=== PATIENT | male | born 1975 | race African-American/Black ===

== ENCOUNTER 2017-12-25 11:28 | Emergency (ER) | payer MEDICAID ==
[~2017-12-25] VITALS: Ht 193 cm; Wt 84.0 kg
[2017-12-25 11:43] VITALS: BP 138/75
== END 2017-12-25 12:54 | disposition home or self-care (01) ==
LOC: ER 11:28
DX: F15.10 Other stimulant abuse, uncomplicated (principal); Z02.89 Encounter for other administrative examinations; F17.200 Nicotine dependence, unspecified, uncomplicated; Z79.82 Long term (current) use of aspirin
CPT/HCPCS: 99283

== ENCOUNTER 2018-03-14 13:21 | Emergency (ER) | payer MEDICAID ==
[~2018-03-14] VITALS: Ht 193.7 cm; Wt 86.8 kg
[2018-03-14 14:17] VITALS: BP 115/43
== END 2018-03-14 15:24 | disposition home or self-care (01) ==
LOC: ER 13:22
DX: F15.10 Other stimulant abuse, uncomplicated (principal); Z60.2 Problems related to living alone; Z88.6 Allergy status to analgesic agent
CPT/HCPCS: 99281

== ENCOUNTER 2018-05-24 10:09 | Emergency (ER) | payer MEDICAID ==
[~2018-05-24] VITALS: Ht 193 cm; Wt 89.0 kg
[2018-05-24] MEDS ORDERED: [UNRECOGNIZED DRUG - CODE] PO (10:53)
[2018-05-24 11:28] VITALS: BP 115/52
== END 2018-05-24 11:30 | disposition home or self-care (01) ==
LOC: ER 10:09
DX: J22 Unspecified acute lower respiratory infection (principal); F15.90 Other stimulant use, unspecified, uncomplicated; Z88.6 Allergy status to analgesic agent; Z79.899 Other long term (current) drug therapy; Z60.2 Problems related to living alone
CPT/HCPCS: 99283

== ENCOUNTER 2018-05-29 16:52 | Emergency (ER) | payer MEDICAID ==
[~2018-05-29] VITALS: Ht 193.7 cm; Wt 89.5 kg
[~2018-05-29 16:52] MED LIST: [UNRECOGNIZED DRUG - CODE] PO
[2018-05-29 16:56] VITALS: BP 127/60
== END 2018-05-29 18:42 | disposition home or self-care (01) ==
LOC: ER 16:52
DX: B34.9 Viral infection, unspecified (principal); F17.210 Nicotine dependence, cigarettes, uncomplicated; F15.90 Other stimulant use, unspecified, uncomplicated; Z88.6 Allergy status to analgesic agent
CPT/HCPCS: 99281

== ENCOUNTER → 2018-11-14 | Emergency (ER) | payer MEDICAID ==
[~2018-11-14] VITALS: Ht 195.6 cm; Wt 88.6 kg
[~2018-11-14] MED LIST changes: +EMOL78CR TOP; +KEN0.1O TP
[2018-11-14 13:57] VITALS: BP 131/78
== END | disposition home or self-care (01) ==
LOC: ER 13:24
DX: L30.9 Dermatitis, unspecified (principal); F15.90 Other stimulant use, unspecified, uncomplicated; Z88.6 Allergy status to analgesic agent; Z79.899 Other long term (current) drug therapy
CPT/HCPCS: 99283

== ENCOUNTER 2019-06-30 10:59 | Emergency (ER) | payer MEDICAID, OTHER ==
[~2019-06-30] VITALS: Ht 190.5 cm; Wt 93.2 kg
[~2019-06-30 10:59] MED LIST changes: -KEN0.1O TP
[2019-06-30 11:07] VITALS: BP 125/79
== END 2019-06-30 13:13 | disposition home or self-care (01) ==
LOC: ER 11:00
DX: S90.31XA Contusion of right foot, initial encounter (principal); F15.90 Other stimulant use, unspecified, uncomplicated; F17.200 Nicotine dependence, unspecified, uncomplicated; Z88.6 Allergy status to analgesic agent; Z79.899 Other long term (current) drug therapy; W50.0XXA Accidental hit or strike by another person, initial encounter; Y93.44 Activity, trampolining; Y92.89 Other specified places as the place of occurrence of the external cause; Y99.9 Unspecified external cause status
CPT/HCPCS: 29515; 99283

== ENCOUNTER 2019-08-30 11:15 | Emergency (ER) | payer MEDICAID, OTHER ==
[~2019-08-30] VITALS: Ht 193 cm; Wt 110.0 kg
[2019-08-30 11:40] VITALS: BP 130/70
[2019-08-30] MEDS ORDERED: ROBCFL PO (13:33)
[2019-08-30] MEDS ORDERED: BENZ-16 PO (13:33)
[2019-08-30] MEDS ORDERED: ALBU18HF2 INH (13:33)
== END 2019-08-30 13:49 | disposition home or self-care (01) ==
LOC: ER 11:16
DX: R05 Cough (principal); J00 Acute nasopharyngitis [common cold]; R09.89 Other specified symptoms and signs involving the circulatory and respiratory systems; F15.90 Other stimulant use, unspecified, uncomplicated; Z88.8 Allergy status to other drugs, medicaments and biological substances; Z79.899 Other long term (current) drug therapy; Z60.2 Problems related to living alone
CPT/HCPCS: 99283

== ENCOUNTER 2019-10-11 08:45 | Emergency (ER) | payer MEDICAID, OTHER ==
[~2019-10-11] VITALS: Ht 190.5 cm; Wt 88.0 kg
[~2019-10-11 08:45] MED LIST changes: +ALBU18HF2 INH
[2019-10-11 08:47] VITALS: BP 149/62
[2019-10-11] MEDS ORDERED: AMOX-117 PO (09:06)
[2019-10-11] MEDS ORDERED: HYDR-4383 PO (09:06)
== END 2019-10-11 09:28 | disposition home or self-care (01) ==
LOC: ER 08:45
DX: K04.7 Periapical abscess without sinus (principal); F15.90 Other stimulant use, unspecified, uncomplicated; Z88.6 Allergy status to analgesic agent
CPT/HCPCS: 99283

== ENCOUNTER 2020-02-12 12:28 | Emergency (ER) | payer MEDICAID, OTHER ==
[~2020-02-12] VITALS: Ht 190.5 cm; Wt 90.9 kg
[~2020-02-12 12:28] MED LIST changes: +HYDR-4383 PO
[2020-02-12 12:54] VITALS: BP 145/86
[2020-02-12] MEDS ORDERED: TETanus/Pertussis (Acell)/Diphther VAC/PF (Tdap-Adult) 0.5ml syringe IMVAC ONE (13:30)
[2020-02-12] MEDS ORDERED: AMOX-117 PO (13:54)
== END 2020-02-12 14:07 | disposition home or self-care (01) ==
LOC: ER 12:29
DX: S41.052A Open bite of left shoulder, initial encounter (principal); F15.90 Other stimulant use, unspecified, uncomplicated; Z60.2 Problems related to living alone; Z88.8 Allergy status to other drugs, medicaments and biological substances; Z79.2 Long term (current) use of antibiotics; Z79.899 Other long term (current) drug therapy; W50.3XXA Accidental bite by another person, initial encounter; Y93.89 Activity, other specified; Y92.89 Other specified places as the place of occurrence of the external cause; Y99.8 Other external cause status
CPT/HCPCS: 90471; 90715; 99283

== ENCOUNTER 2021-10-24 10:49 | Emergency (ER) | payer MEDICAID, OTHER ==
[~2021-10-24] VITALS: Ht 191.1 cm; Wt 88.4 kg
[2021-10-24 10:57] VITALS: BP 115/68
[2021-10-24] MEDS ORDERED: KEP500T PO (11:05)
== END 2021-10-24 11:09 | disposition home or self-care (01) ==
LOC: ER 10:49
DX: Z76.0 Encounter for issue of repeat prescription (principal); M54.41 Lumbago with sciatica, right side; F15.90 Other stimulant use, unspecified, uncomplicated; Z60.2 Problems related to living alone; Z88.8 Allergy status to other drugs, medicaments and biological substances; Z79.899 Other long term (current) drug therapy
CPT/HCPCS: 99282; 99283

== ENCOUNTER 2025-01-15 06:12 | Inpatient (IN) | payer MEDICAID ==
[2025-01-15] VITALS (26 sets, daily range): BP systolic 94–153; BP diastolic 48–127; PULSE 69–147; RESP 16–40; O2SAT 95–100
[~2025-01-15] VITALS: Ht 193 cm; Wt 87.4 kg
[~2025-01-15 06:12] MED LIST changes: +KEP500T PO
[2025-01-15] MEDS: ipratropium/albuterol 3ml nebule NEB ONE (06:30)
[2025-01-15] MEDS: furosemide 10 MG/1 ML 10ml inj IV ONE (06:30)
[2025-01-15 06:39] LABS: ABG BASE EXCESS -4.1 mmol/L (-2.0-3.0); ABG HCO3 24.4 mmol/L (21.0-28.0); ABG OXYGEN SATURATION 98.9 % (94.0-98.0); ABG PCO2 (T) 60.4 mmHg (35.0-48.0); ABG PH (T) 7.225 (7.350-7.450); ABG PO2 (T) 161.5 mmHg (83.0-108.0); ALLEN'S TEST POSITIVE; FCOHb 1.1 % (0.5-1.5); FHHb 1.1 % (0.0-5.0); FMetHb 0.1 % (0.0-1.5); FO2Hb 97.7 % (94.0-98.0); MODE MASK - BIPAP; TIDAL VOLUME 750 mL; TOTAL HEMOGLOBIN 13.4 G/dl (13.5-17.5)
[2025-01-15 06:40] LABS: BASOPHILS # (AUTO) 0.1 X10'3 (0-0.2); BASOPHILS % (AUTO) 0.9 % (0-1); EOSINOPHILS # (AUTO) 0.2 X10'3 (0-0.9); EOSINOPHILS % (AUTO) 2.2 % (0-6); HEMATOCRIT 39.8 % (42.0-52.0); HEMOGLOBIN 12.7 g/dl (14.0-17.9); LYMPHOCYTES # (AUTO) 5.1 X10'3 (1.1-4.8); LYMPHOCYTES % (AUTO) 46.7 % (21-51); MEAN CORPUSCULAR HEMOGLOBIN 27.1 PG (27.0-31.0); MEAN CORPUSCULAR HGB CONC 31.8 g/dL (33.0-36.5); MEAN CORPUSCULAR VOLUME 85.1 FL (78-98); MEAN PLATELET VOLUME 7.6 FL (7.4-10.4); MONOCYTES # (AUTO) 0.6 X10'3 (0-0.9); MONOCYTES % (AUTO) 5.6 % (2-12); NEUTROPHILS # (AUTO) 4.9 X10'3 (1.8-7.7); NEUTROPHILS % (AUTO) 44.6 % (42-75); PLATELET COUNT 219 X10'3 (140-440); RED BLOOD COUNT 4.68 X10'6 (4.70-6.10); RED CELL DISTRIBUTION WIDTH 15.6 % (11.5-14.5)
--- NOTE | 2025-01-15 06:40 | Physician Documentation ---
History of Present Illness ~ Chief Complaint: Shortness of Breath Stated Complaint: RESPIRATORY DISTRESS Time Seen by MD: 06:22 OK to notify your PCP?: Yes Primary Medical Doctor: none Source: patient, RN/, RN notes reviewed, old records Exam Limitations: clinical condition HPI This patient has a history of a TAVR as well as open heart surgery. He has a history of heart failure and according to the medical record asthma as well. Patient is unable to speak nods to questions but does not answer questions appropriately he is in severe respiratory distress. Patient apparently was doing fentanyl received Narcan, EMS arrived satting at 80% non-rebreather was provided and immediately came to the ER for evaluation where he is barely able to provide a history. Review of systems unable to obtained. Majority information is obtained by EMS as well as medical record. Patient is diaphoretic and having difficulty maintaining body posture. Patient states he has not taken his medications in a while Medication Reconciliation Allergies: Coded Allergies: aspirin (Verified Allergy, Unknown, 01/15/25) Miscellaneous Medications Home Med List (No Home Medications), (Reported) Discontinued Medications Albuterol Sulfate (Ventolin Hfa), 2 PUFFS INH Q4HPRN Discontinued Reason: Other Dextromethorphan Hb/Doxylamine (Daytime-Nighttime Cough Liquid), 5 ML PO TID Discontinued Reason: Other Emollient Combination No.73 (Eucerin Intensive Repair), 1 APPLIC TOP BID Discontinued Reason: Other Hydrocodone/Acetaminophen ([place] 5-325 Tablet), 1 TAB PO TID PRN Discontinued Reason: Other Levetiracetam (Keppra), 1 TAB PO Q12H Discontinued Reason: Other Past Medical History Past Medical History: *CARDIOVASCULAR* Past Surgical History: noncontributory Alcohol Use: None Drug Use: methamphetamine, heroin Lives with: Alone Lives In: Home Review of Systems ROS Unable to obtain ROS Physical Exam Vital Signs: RN Vital Signs have been reviewed: Yes, Temperature: 98.6, Source: Temporal, Heart Rate: 116, Respiratory Rate: 39, BP: 149/123, Pulse Oximetry: 100, Weight: 97.730 Oxygen Flow Rate: 15.0 Physical Exam General: The patient is well developed, well nourished, toxic appearing and is in severe acute distress. Diaphoretic having difficulty maintaining posture Skin: [place], warm and dry with no rashes. HEENT: Head was normocephalic and atraumatic. Eyes - pupils equal, round, reactive to light and accommodation. Extraocular movements were intact. Conjunctivae were nonicteric. The mouth and oropharynx were clear with moist mucous membranes. There were no pharyngeal exudates or erythema. Neck: Supple and nontender. There was no jugular venous distention, lymphadenopathy, thyromegaly or masses. Chest: Diffuse rhonchi throughout all lung millan. Accessory muscle use diaphragmatic breathing rapid breathing Heart: Rate rapid regular and rhythmic. S1, S2. No murmurs. Palpation of the chest wall was normal. No rubs or thrills. Abdomen: Soft, nontender and nondistended. Positive bowel sounds. No guarding or rebound. No hepatosplenomegaly or palpable masses. Extremities: No cyanosis, clubbing or edema. The patient moves all extremities. Pulses were equal and symmetric. Neurologic: Motor sensory grossly intact Psychologic: The patient was oriented to person, place and time. The patient demonstrated appropriate judgement and insight. Progress Progress Note 0810: Dr. sierra was spoken to reguarding the patient and he kindly agreed to admit the patient with admission orders being entered at this time . 0840: An abnormal echocardiography confirmed pericarditis so antibiotics were written at this time. Results/Orders Results/Orders Orders - NELSON VALERO MD Electrocardiogram (01/15/25 06:23) Chest,Single View (01/15/25 06:30) Monitor (01/15/25 06:23) Saline Lock (01/15/25 06:23) Abg (Arterial Blood Gas) (01/15/25 06:23) Svn Treatment (01/15/25 06:26) Carvedilol Tablet (Coreg Tablet) (01/15/25 08:00) Bipap/Cpap (01/15/25 06:43) Heparin 25,000 Unit/250ml Bag (Heparin 2 (01/15/25 07:25) Electrocardiogram (01/15/25 07:31) Heparin 10,000 Unit/Ml 1ml (Heparin 10,0 (01/15/25 07:40) Md To Page (01/15/25 07:40) Echocardiogram (01/15/25 07:41) Electrocardiogram (01/16/25 08:00) Completed Orders - NELSON VALERO MD Furosemide Inj (Lasix Inj) (01/15/25 06:25) Electrocardiogram (01/15/25 06:23) Cbc/Diff (01/15/25 06:23) Chest,Single View (01/15/25 06:30) Hs Troponin I W Calculations (01/15/25 06:23) PBNP (01/15/25 06:23) BMP (01/15/25 06:23) PTT (01/15/25 06:23) Pt Inr (01/15/25 06:23) Methylprednisolone Sod Succ (Solumedrol (01/15/25 06:30) Ipratropium/Albuterol Nebule (Ipratrop/A (01/15/25 06:30) Metoprolol Tartrate Inj (Lopressor Iv) (01/15/25 06:30) Heparin 10,000 Unit/Ml 1ml (Heparin 10,0 (01/15/25 07:25) Electrocardiogram (01/15/25 07:31) Liver Panel (01/15/25 06:28) Echocardiogram (01/15/25 07:41) Message To Nursing (01/15/25 08:00) Fibrinogen (01/15/25 07:13) C-Reactive Protein (01/15/25 06:28) Vital Signs 01/15/25 01/15/25 01/15/25 01/15/25 06:15 06:33 06:33 06:38 Temp 98.6 98.6 Pulse 152 81 116 129 Resp 35 35 39 40 40 B/P (MAP) 141/65 149/123 (132) Pulse Ox 92 100 100 O2 Delivery BiPAP+ O2 Flow Rate 15.0 15.0 FiO2 60 50 01/15/25 01/15/25 01/15/25 01/15/25 06:39 06:43 06:46 07:13 Pulse 147 115 101 Resp 45 38 B/P (MAP) O2 Delivery Bi-pap FiO2 50 01/15/25 07:17 Temp 98.6 Pulse 130 Resp 40 B/P (MAP) 115/52 (73) Pulse Ox 97 O2 Flow Rate 15.0 FiO2 60 Laboratory Tests Test 01/15/25 06:28 01/15/25 06:35 01/15/25 06:53 01/15/25 07:13 White Blood Count 11.0 Red Blood Count 4.68 L Hemoglobin 12.7 L Hematocrit 39.8 L Mean Corpuscular Volume 85.1 Mean Corpuscular Hemoglobin 27.1 Mean Corpuscular Hemoglobin Concent 31.8 L Red Cell Distribution Width 15.6 H Platelet Count 219 Mean Platelet Volume 7.6 Neutrophils (%) (Auto) 44.6 Lymphocytes (%) (Auto) 46.7 Monocytes (%) (Auto) 5.6 Eosinophils (%) (Auto) 2.2 Basophils (%) (Auto) 0.9 Neutrophils # (Auto) 4.9 Lymphocytes # (Auto) 5.1 H Monocytes # (Auto) 0.6 Eosinophils # (Auto) 0.2 Basophils # (Auto) 0.1 CBC Comment Erythrocyte Sedimentation Rate 7 Sodium Level 141 Potassium Level 5.6 H Chloride Level 106 Carbon Dioxide Level 27.0 Anion Gap 8 Blood Urea Nitrogen 21 H Creatinine 1.51 H Estimated GFR/1.73 m2 50 BUN/Creatinine Ratio 13.9 Glucose Level 164 H Lactic Acid Level 6.4 *H Calcium Level 8.3 L Total Bilirubin 0.5 Direct Bilirubin Aspartate Amino Transf (AST/SGOT) 79 H Alanine Aminotransferase (ALT/SGPT) 56 Alkaline Phosphatase 151 H Troponin I High Sensitivity 1432 *H C-Reactive Protein 1.08 H Pro-B-Type Natriuretic Peptide 5574 H Total Protein 7.3 Albumin 3.0 L Globulin 4.3 Albumin/Globulin Ratio 0.7 L Procalcitonin < 0.05 Chemistry Comments Blood Gas Specimen Type Arterial Blood Gas Puncture Site Lr O2 Saturation 98.9 H Arterial Blood pH (Temp corrected) 7.225 *L Arterial Blood pCO2 (Temp correct) 60.4 *H Arterial Blood pO2 (Temp corrected) 161.5 H Arterial Blood PO2/FiO2 Ratio 2.31 Arterial Blood HCO3 24.4 Arterial Blood Base Excess -4.1 L Arterial Blood Oxyhemoglobin 97.7 Arterial Blood Carboxyhemoglobin 1.1 Arterial Blood Methemoglobin 0.1 Arterial Blood Deoxyhemoglobin 1.1 Vj Test Positive Blood Gas Hemoglobin 13.4 L Blood Gas Temperature 37.0 Blood Gas Modality Mask - bipap FiO2 70.0 Blood Gas Tidal Volume 750 Blood Gas Critical Value Called To Dr valero Urine Specimen Description Urinal Urine Color Straw Urine Clarity Clear Urine pH 6.0 Urine Specific [place] 1.015 Urine Protein 100 H Urine Glucose (UA) Negative Urine Ketones Negative Urine Occult Blood Trace-intact Urine Nitrite Negative Urine Bilirubin Negative Urine Urobilinogen 0.2 Urine Leukocyte Esterase Negative Urine RBC 3-10 Urine WBC None seen Urine Squamous Epithelial Cells Few Urine Bacteria None seen Urine Mucus None seen Volume Urine Centrifuged 10 ml Urine Comment Urine Opiates Screen Negative Urine Methadone Screen Negative Urine Fentanyl Screen Positive H Urine Barbiturates Screen Negative Urine Phencyclidine Screen Negative Urine Amphetamines Screen Positive Urine Benzodiazepines Screen Negative Urine Cocaine Screen Negative Urine Cannabinoids Screen Positive Drug Screen Comment Prothrombin Time 10.7 INR International Normalized Ratio 1.0 Activated Partial Thromboplast Time 24 Fibrinogen 339 Coagulation Comments Coagulation Clinical Comments Re-Evaluation Re-evaluation : Re-Evaluation: Improved Progress Patient was seen and examined. Patient is given reassurance. Patient was severe respiratory distress wet rhonchorous breath sounds throughout looking quite ill immediately placed on BiPAP respiratory called overhead. Concern about the need to intubate the patient. He was unable to communicate other than would word sentences. Patient was having trouble maintaining his body posture as well. Patient laboratory workup initially shows normal CBC with slight anemia with 12 and 39 hematocrit sed rate seven coagulation within normal limits. Fibrinogen normal at three three nine. Urinalysis within normal limits toxicology positive for methamphetamine marijuana. Also fentanyl. Chemistry has a bit more concerning findings with borderline hyperkalemia at 5.6 with a BUN of 21 creatinine 1.51. Glucose is elevated at 164 lactic acid is 6.4. His most likely due to hypoxemia and respiratory distress poor oxygenation 2nd lactic acid was 1.3 which showed recovery. Patient's ABG showed a pH of 7.22 pCO2 60 PO2 is 161 bicarb 24 base excess-4.1 showing hypercapnia and respiratory acidosis. Patient's troponin later shows an elevated troponin of 1432. To slow the patient's heart rate down upon arrival he was given Coreg he has been off h is medications 3.125 mg followed by metoprolol 5 mg IV finally he was started on a heparin bolus and heparin drip for the non ST-elevation myocardial infarction. So far as his difficulty breathing and wheezing patient received Solu-Medrol as well. I then contacted the hospitalist who kindly agreed to admit the patient for further workup and care. Continuous clinical research monitor interpretation shows rapid sinus tachycardia heart rate 150s possible AFib. Abnormal, my interpretation. Later clinical research monitor interpretation showed sinus tachycardia then normal sinus rhythm heart rate 80s, normal, my interpretation. Pulse oximetry monitor interpretation shows hypoxemia satting at 92% on 15 L also on BiPAP abnormal, my interpretation. Re-evaluation patient is showing signs of improvement both with heart rate cardiac output and ultimately improved oxygen on BiPAP no longer fatiguing. Patient was then admitted to the ICU for further workup and care. 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 Nelson Valero Measurements Intervals [place] Rate: 90 P: 0 WI: 0 QRS: 59 QRSD: 112 T: 68 QT: 364 QTc: 446 Interpretive Statements Atrial fibrillation Ventricular bigeminy Left ventricular hypertrophy Nonspecific T abnormalities, lateral leads ST elevation, consider anterior injury Electronically Signed On 01-15-2025 7:36:[address] Nelson Valero Please click the below link to view image of tracing. EKG Date and Time:01/15/25733 Electronically Signed by: NELSON VALERO MD Date and Time: 01/15/25735 Chest X-Ray : Additional Comments EXAM: XR Chest, 1 View CLINICAL INDICATION: SOB TECHNIQUE: Frontal view of the chest. COMPARISON: None FINDINGS: LUNGS AND PLEURAL SPACES: Pulmonary congestion and edema. Pneumonia cannot be excluded. No pneumothorax. HEART: Unremarkable. No cardiomegaly. MEDIASTINUM: Unremarkable. Normal mediastinal contour. BONES/JOINTS: Unremarkable. No acute fracture. OTHER FINDINGS: . . . . IMPRESSION: Pulmonary congestion and edema. Pneumonia cannot be excluded. Heart Score: Heart Score Response (Comments) Value History Slightly Suspicious 0 EKG Repolarization Disturb 1 Age 45-64 1 Risk Factors 1 or 2 risk factors 1 Troponin 1-2 x's Normal limit 1 Total 4 Medical Decision Making Additional info obtained from: old records Differential Dx:Considerations: Include: anxiety, asthma, bronchitis, cardiogenic shock, CHF, COPD, dysrhythmia, hyperventilation, hyponatremia, myoca rdial infarction, panic attack, pneumonia, pneumonitis, pneumothorax, pulmonary embolism, respiratory distress, respiratory failure, sinusitis, upper resp. 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 Admission Level of Care: Critcal Care Impression: Primary Impression: NSTEMI (non-ST elevated myocardial infarction) Additional Impressions: Acute heart failure Qualified Codes: I50.41 - Acute combined systolic (congestive) and diastolic (congestive) heart failure Respiratory failure with hypoxia and hypercapnia Qualified Codes: J96.01 - Acute respiratory failure with hypoxia; J96.02 - Acute respiratory failure with hypercapnia Condition: Critical Referrals: NO PRIMARY CARE PROVIDER (PCP) Education Educated: Patient Educated regarding: diagnosis, treatment, prognosis, need for follow up Critical Care Note Total Time (mins): 45 Critical Care Note The very real possibility of a deterioration of this patient's condition required the highest level of my preparedness for sudden, emergent intervention. I provided critical care services, which included medication orders, frequent reevaluations of the patient's condition and response to treatment, ordering and reviewing test results, and discussing the case with various consultants. Excludes time spent performing separately billable procedures. The critical care time associated with the care of the patient was. Forty-five Minutes Signature Scribe Signature: Scribed for Nelson Valero MD by Heather Dozier . 01/15/25 08:25 (progress and departure) Attestation: The note accurately reflects work and decisions made by me.Nelson Valero MD 01/15/25 06:59 NELSON VALERO MD January 15, 2025 06:40 HEATHER HORTA January 15, 2025 08:26
[2025-01-15] MEDS: metoprolol tartrate 1mg/ml inj IV SCH (06:46)
[2025-01-15] MEDS: methylPREDNISolone sod succ 125mg/2ml vial IV ONE (06:46)
[2025-01-15] MEDS: carVEDilol 3.125mg tablet PO SCH (06:46)
--- NOTE | 2025-01-15 06:48 | RADIOLOGY REPORT ---
EXAM: XR Chest, 1 View CLINICAL INDICATION: SOB TECHNIQUE: Frontal view of the chest. COMPARISON: None FINDINGS: LUNGS AND PLEURAL SPACES: Pulmonary congestion and edema. Pneumonia cannot be excluded. No pneumot horax. HEART: Unremarkable. No cardiomegaly. MEDIASTINUM: Unremarkable. Normal mediastinal contour. BONES/JOINTS: Unremarkable. No acute fracture. OTHER FINDINGS: . . . . IMPRESSION: Pulmonary congestion and edema. Pneumonia cannot be excluded.
[2025-01-15 06:59] LABS: ANION GAP 8 (8-16); BLOOD UREA NITROGEN 21 MG/DL (7-18); BUN/CREATININE RATIO 13.9 (10.0-20.0); CALCIUM 8.3 MG/DL (8.5-10.1); CHLORIDE 106 MMOL/L (99-107); CREATININE 1.51 MG/DL (0.60-1.10); PRO BRAIN NATRIURETIC PEPTIDE 5574 PG/ML (0-125); SODIUM 141 MMOL/L (135-145); eCRCL 74 ML/MIN; eGFR 50 ML/MIN
[2025-01-15 07:09] LABS: GLUCOSE 164 MG/DL (70-104); POTASSIUM 5.6 MMOL/L (3.5-5.1)
--- NOTE | 2025-01-15 07:36 | ELECTROCARDIOGRAPH REPORT ---
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 Seda Jeffers Measurements Intervals [place] Rate: 90 P: 0 [place]: 0 QRS: 59 QRSD: 112 T: 68 QT: 364 QTc: 446 Interpretive Statements Atrial fibrillation Ventricular bigeminy Left ventricular hypertrophy Nonspecific T abnormalities, lateral leads ST elevation, consider anterior injury Electronically Signed On 01-15-2025 7:36:[address] Seda Jeffers Please click the below link to view image of tracing.
[2025-01-15 07:55] LABS: APTT 24 SECONDS (22-32); PROTHROMBIN TIME 10.7 SECONDS (9.0-12.0)
[2025-01-15] MEDS: heparin 10,000 units/1 ML INJ IV ONE (08:09)
[2025-01-15] MEDS ORDERED: magnesium sulf-water 2g/50mL 50 ML IV PRN (08:10)
[2025-01-15] MEDS ORDERED: potassium Cl 40MEQ/1/2NS 520ml 520 ML IV PRN (08:10)
[2025-01-15] MEDS ORDERED: ondansetron/PF 4mg/2ml inj IV PRN (08:10)
[2025-01-15] MEDS ORDERED: potassium Cl 20 mEq SR tablet PO PRN ×2 (08:10)
[2025-01-15] MEDS ORDERED: magnesium Cl slow-release 64mg tablet PO PRN (08:10)
[2025-01-15] MEDS ORDERED: mag hydrox/Alum hydrox/simeth 30ml oral suspension PO PRN (08:10)
[2025-01-15] MEDS ORDERED: magnesium hydroxide 30ml (MOM) UD suspension PO PRN (08:10)
[2025-01-15] MEDS ORDERED: magnesium sulf-water 4G/100mL 100 ML IV PRN (08:10)
[2025-01-15 08:11] LABS: ALANINE AMINOTRANSFERASE 56 U/L (12-78); ALBUMIN/GLOBULIN RATIO 0.7 (1.1-1.5); ALKALINE PHOSPHATASE 151 IU/L (46-116); BILIRUBIN,TOTAL 0.5 MG/DL (0.1-1.0); TOTAL PROTEIN 7.3 G/DL (6.4-8.2)
[2025-01-15] MEDS: heparin 25,000 UNIT/250ml bag 250 ML IV PRN (08:12)
[2025-01-15] MEDS: MESSAGE TO NURSING IV ONE ×2 (08:12→16:19)
[2025-01-15 08:16] LABS: ASPARTATE AMINO TRANSFERASE 79 U/L (10-37)
[2025-01-15 08:48] LABS: BILIRUBIN,URINE NEGATIVE (Neg); CLARITY,URINE CLEAR (Clear); COLOR,URINE STRAW (Yellow); GLUCOSE, URINE NEGATIVE (Neg); KETONES,URINE NEGATIVE (Neg); LEUKOCYTE ESTERASE ,URINE NEGATIVE (Neg); NITRITES, URINE NEGATIVE (Neg); OCCULT BLOOD,URINE TRACE-INTACT (Neg); PROTEIN,URINE 100 mg/dl (Neg); UROBILINOGEN,URINE 0.2 E.U/dL (0.2-1.0)
[2025-01-15] MEDS ORDERED: ipratropium/albuterol 3ml nebule NEB PRN (08:50)
[2025-01-15 08:54] LABS: UA COLLECTION TYPE URINAL
[2025-01-15 08:56] LABS: BACTERIA,URINE NONE SEEN /HPF (Neg); MUCUS STRANDS NONE SEEN /LPF (Neg); SQUAMOUS EPITHELIAL CELL,UR FEW /LPF (FEW); WBC,URINE NONE SEEN /HPF (0-4)
[2025-01-15 09:01] LABS: URINE AMPHETAMINE SCREEN POSITIVE (Neg); URINE BARBITUATE SCREEN NEGATIVE (Neg); URINE BENZODIAZEPINES SCREEN NEGATIVE (Neg); URINE CANNABINOID SCREEN POSITIVE (Neg); URINE COCAINE SCREEN NEGATIVE (Neg); URINE METHADONE SCREEN NEGATIVE (Neg); URINE OPIATE SCREEN NEGATIVE (Neg); URINE PHENCYCLIDINE SCREEN NEGATIVE (Neg)
[2025-01-15 09:05] LABS: C-REACTIVE PROTEIN 1.08 MG/DL (0.0-0.5)
[2025-01-15] MEDS: vancomycin/NS 1 GM ADD-VANTAGE 250 ML X 1 DOSE IV ONE (09:10)
--- NOTE | 2025-01-15 09:19 | ELECTROCARDIOGRAPH REPORT ---
[facility] Test Date: 2025-01-15 Test Time: 06:20:46 Pat Name: MADDISON ADAMS Department: EMERGENCY ROOM Room: [facility] 2004 Gender: M Technology Solutions Architect: CHANEL : 1975 Requested By: SEDA JEFFERS Order Number: [id number] Reading MD: Dr. Seda Jeffers Measurements Intervals [place] Rate: 154 P: 0 DE: 0 QRS: 105 QRSD: 171 T: -74 QT: 314 QTc: 503 Interpretive Statements Atrial fibrillation Right bundle branch block LVH by voltage Anterior Q waves, possibly due to LVH Repol abnrm, prob ischemia, anterolateral lds Prolonged QT interval Baseline wander in lead(s) V2 Electronically Signed On 01-15-2025 12:11:[address] Seda Jeffers Please click the below link to view image of tracing.
[2025-01-15] MEDS: amiodarone 200mg tablet PO SCH (10:31)
[2025-01-15 10:37] LABS: FIBRINOGEN 339 MG/DL (177-424)
--- NOTE | 2025-01-15 11:41 | HISTORY AND PHYSICAL-Residence ---
History & Physical Providers to CC Resident Creating Document: TOBI WALLIS, DALIA ~ History of Present Illness Primary Medical Doctor: none Reason for Admit\Complaint: Acute hypoxemic respiratory failure, NSTEMI, AFib History of Present Illness Patient in severe respiratory distress and on BiPAP and is not able to provide a proper history. This is a 49-year-old male past medical history of aortic stenosis status post aortic valve replacement, seizures was brought in by the EMS after the patient's friends called the EMS in view of the patient is altered level of consciousness and severe respiratory distress. The patient reports that he was drinking, smoking and using drugs-fentanyl this morning when all of a sudden he started having severe respiratory distress and got confused because of which the patient's friend called the EMS. Per the EMS reported there was suspicion for fentanyl overdose in the patient was treated with Narcan initially. Per the EMS the patient also complained of substernal chest pain and was given a full dose of aspirin. He currently complains of severe shortness of breaths even on BiPAP. Currently denies any headaches, nausea, vomiting, confusion, chest pain or palpitations. 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 He states that the last time he saw a laborer shaft sinking was 2-3 years ago-Dr. Berumen is his laborer shaft sinking. He also reported that he has not been on any of his medications over the last three years. Recently has become homeless-three weeks ago. Allergies: Coded Allergies: aspirin (Verified Allergy, Unknown, 01/15/25) Home Medications Home Medications Active Keppra (Levetiracetam) 500 Mg Tablet 1 Tab PO Q12H 30 Days [place] 5-325 Tablet (Hydrocodone/Acetaminophen) 1 Each Tablet 1 Tab PO TID PRN 3 Days Ventolin Hfa (Albuterol Sulfate) 18 Gm Hfa.aer.ad 2 Puffs INH Q4HPRN Eucerin Intensive Repair (Emollient Combination No.73) 78 Gm Cream..g. 1 Applic TOP BID Daytime-Nighttime Cough Liquid (Dextromethorphan Hb/Doxylamine) 710 Ml Liquid.seq 5 Ml PO TID 7 Days Past Medical History Past Medical History Aortic stenosis status post aortic wall replacement Polysubstance abuse Seizures Past Surgical History Surgical History Comment TAVR Aortic valve replacement Past Social History Social History Comment Currently homeless Unemployed Polysubstance abuse Alcohol Use: None Drug Use: Methamphetamine, Heroin Lives with: Alone Lives In: Home ROS ROS As stated above in the HPI, otherwise all systems are reviewed and negative. Exam Vitals: Vital Signs Date Time Temp Pulse Resp B/P (MAP) Pulse Ox O2 Delivery O2 Flow Rate FiO2 01/15/25 11:15 76 21 108/58 (75) 96 Nasal Cannula 2.0 01/15/25 10:15 40 01/15/25 10:00 97.2 General: General: Awake alert, in significant distress. HEENT: Conjunctiva pink, Sclera clear, Mucus Membranes moist. Neck: Supple without masses and tenderness. Resp: Labored, shallow breathing. Bilateral coarse breath sounds present. Heart: Irregularly irregular rate and rhythm. Loud systolic murmur heard in the aortic area. Abdomen: Soft and non tender no organomegaly Extremities: No cyanosis,clubbing or edema. Skin: Warm and Dry. Neurology: No focal motor or sensory deficits. Diagnostic Data Last Recorded Lab Results: 01/15/25 0628 01/15/25 0628 Diagnostic Data: Laboratory Tests Test 01/15/25 07:13 Prothrombin Time 10.7 SECONDS (9.0-12.0) INR International Normalized Ratio 1.0 INR Activated Partial Thromboplast Time 24 SECONDS (22-32) Fibrinogen 339 MG/DL (177-424) Coagulation Comments Coagulation Clinical Comments Advance Care Planning Advanced Care planning: Add on additional 30 min Additional Plan Acute hypoxemic respiratory failure Flash pulmonary edema Acute congestive heart failure, unknown ejection fraction NSTEMI History of aortic valve replacement. Noncompliant. Patient severe respiratory distress at the time of presentation. Chest x-ray significant for significant pulmonary congestion and edema. EKG was significant for AFib with RVR with a heart rate around 156. He was given aspirin 325 mg p.o. by the EMS. Started the patient on IV heparin drip in view of the underlying NSTEMI. Carvedilol 3.125 mg p.o. b.i.d. Lasix 60 mg once followed by Lasix 40 mg b.i.d. Oxygen support. Currently on BiPAP with a FiO2 of 40%. We will wean off as tolerated. We will follow up with echocardiography. Strict input and output monitoring. Fluid restriction. The patient's laborer shaft sinking has been consulted by Dr. Valero in the ER. Awaiting recommendations. Prelim echo reported the bedside mentioned that the patient might have vegetations on the valves. Awaiting final report. Starting the patient empirically on IV vancomycin. Blood cultures has been drawn. Atrial fibrillation with RVR Patient came in with a AFib with a heart rate of around 150s. Was initially treated in the ER with the IV metoprolol 5 mg. Received three doses of IV metoprolol. He was later started on carvedilol 3.125 mg p.o. b.i.d. and amiodarone 200 mg p.o. b.i.d. Continue telemetry monitoring. Awaiting Cardiology recommendations. We will follow up accordingly. Polysubstance abuse Her toxic encephalopathy Tox screen positive for fentanyl, amphetamine and cannabis. Substancenavigator consultation recommended. MAYNOR Most likely secondary to renal tubular stasis. Started the patient on diuresis. Strict input and output monitoring. Planned to maintain negative fluid balance. We will continue to monitor renal function test and manage accordingly. Seizures We will restart home medication once med reconciliation is done. CODE STATUS: Full code DVT prophylaxis: IV heparin GI prophylaxis: None Diet: Heart healthy diet Disposition: Continue medical management. We will plan to downgrade the patient from ICU in the next 24-48 hours if the patient's condition and remained stable. Tobi Wallis MD Internal Medicine Resident, PGY-2 Date of Service: January 15, 2025 Billing Provider: TERESA LIND MD, SURYA PRATIK, RES January 15, 2025 11:41
[2025-01-15 15:43] LABS: PRO BRAIN NATRIURETIC PEPTIDE 7301 PG/ML (0-125)
[2025-01-15 15:47] LABS: FREE T4 (FREE THYROXINE) 0.92 NG/DL (0.73-1.40); THYROID STIMULATING HORMONE 0.24 ulU/ml (0.34-4.50)
[2025-01-15] MEDS: heparin 10,000 units/1 ML INJ IV PRN (16:24)
--- NOTE | 2025-01-15 16:24 | CARDIOLOGY REPORT ---
APPROVED REPORT EXAM: Comprehensive 2D, Doppler, and color-flow Echocardiogram. 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 444.0 cm/s AoV VTI 79.3 cm AO Peak GR. 78.9 mmHg AO Mean GR. 43 mmHg LVOT VTI 26.64 cm LVOT Peak Khris. 138.7 cm/s AI P 1/2 Time 384 ms Mitral Valve MV Peak Gr. 24 mmHg MV Mean Gr. 11 mmHg MV PHT 76 ms MVA (PHT) 2.89 cm2 MV YYwr388.2 cm/sMV PSfgy622.5 cm/s MV VTI51.3 cm Tricuspid Valve TR P. Velocity 317 cm/s RAP ESTIMATE 15 mmHg TR Peak Gr. 40 mmHg RVSP 55 mmHg LEFT VENTRICLE LV is mildly dilated with moderate concentric hypertrophy. Overall systolic function appears low norm al. LVEF is 50-55%. RIGHT VENTRICLE RV appears mildly dilated with normal contractility. RVSP is estimated at 55 mmHG. ATRIA Left atrium is severely dilated. AORTIC VALVE S/P SAVR appears well seated with abnormal function. Leaflets appear thickened with reduced mobility. Peak/mean gradients of 79/43 mmHG and a peak velocity of 4.44 m/s. Moderate insufficiency. MITRAL VALVE MV is very thickened, espescially the anterior leaflet with an aspect of mobility, suspicious for end ocarditis, reccomend clinical correlation. Probable mild mitral stenosis, peak/mean gradients of 24/1 1 mmHG and a peak velocity of 2.43 m/s. Increased velocity and gradients likely overexagerated due to regurgitation. Severe mitral regurgitation with flow reversal in pulmonary vein. TRICUSPID VALVE The tricuspid valve is normal in structure. Mild to moderate tricuspid regurgitation. PULMONIC VALVE The pulmonary valve is normal in structure. Trace pulmonic regurgitation. GREAT VESSELS Aortic root is mildly dilated. IVC is dilated and collapses greater than 50% with inspiration. PERICARDIUM There is no pericardial effusion. Other Information Study Quality: Adequate Conclusion LV is mildly dilated with moderate concentric hypertrophy. Overall systolic function appears low norm al. LVEF is 50-55%. RV appears mildly dilated with normal contractility. RVSP is estimated at 55 mmHG. Left atrium is severely dilated. S/P SAVR appears well seated with abnormal function. Leaflets appear thickened with reduced mobility. Peak/mean gradients of 79/43 mmHG and a peak velocity of 4.44 m/s. Moderate insufficiency. MV is very thickened, espescially the anterior leaflet with an aspect of mobility, suspicious for end ocarditis, reccomend clinical correlation. Probable mild mitral stenosis, peak/mean gradients of 24/1 1 mmHG and a peak velocity of 2.43 m/s. Increased velocity and gradients likely overexagerated due to regurgitation. Severe mitral regurgitation with flow reversal in pulmonary vein. The tricuspid valve is normal in structure. Mild to moderate tricuspid regurgitation. The pulmonary valve is normal in structure. Trace pulmonic regurgitation. Aortic root is mildly dilated. There is no pericardial effusion.
[2025-01-15] MEDS ORDERED: NO HOME MEDS (17:13)
--- NOTE | 2025-01-15 17:22 | CONSULTATION REPORT - RESIDENT ---
Consult Providers to CC Resident Creating Document: CURTIS NARVAEZSHERRIEDD KAY CC: MELY MARSHALL MD History of Present Illness Reason for Admit\Complaint: Shortness of breath History of Present Illness Patient was admitted with the following HPI: Patient in severe respiratory distress and on BiPAP and is not able to provide a proper history. This is a 49-year-old male past medical history of aortic stenosis status post aortic valve replacement, seizures was brought in by the EMS after the patient's friends called the EMS in view of the patient is altered level of consciousness and severe respiratory distress. The patient reports that he was drinking, smoking and using drugs-fentanyl this morning when all of a sudden he started having severe respiratory distress and got confused because of which the patient's friend called the EMS. Per the EMS reported there was suspicion for fentanyl overdose in the patient was treated with Narcan initially. Per the EMS the patient also complained of substernal chest pain and was given a full dose of aspirin. He currently complains of severe shortness of breaths even on BiPAP. Currently denies any headaches, nausea, vomiting, confusion, chest pain or palpitations. 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 He states that the last time he saw a economic development specialist was 2-3 years ago-Dr. Berumen is his economic development specialist. He also reported that he has not been on any of his medications over the last three years. Recently has become homeless-three weeks ago. Allergies: Coded Allergies: aspirin (Verified Allergy, Unknown, 01/15/25) Home Medications Home Medications Active Reported No Home Medications (Home Med List) Each Past Medical History Past Medical History Aortic stenosis status post aortic valve replacement Substance abuse Seizure disorder Past Surgical History Surgical History Comment Aortic valve replacement Past Social History Social History Comment Currently homeless Unemployed Alcohol Use: Abuse Drug Use: Methamphetamine, Heroin, fentanyl ROS ROS All systems were reviewed and found negative except for pertinent positives mentioned in HPI Exam Vitals: Vital Signs Date Time Temp Pulse Resp B/P (MAP) Pulse Ox O2 Delivery O2 Flow Rate FiO2 01/15/25 17:00 94 16 115/64 (81) 97 Nasal Cannula 2.0 01/15/25 16:00 96.6 01/15/25 14:13 28 General: General: Awake alert, in significant distress. HEENT: On BiPAP, Conjunctiva pink, Sclera clear, Mucus Membranes moist. Neck: Supple without masses and tenderness. Resp: Labored, shallow breathing. Bilateral coarse breath sounds present. Heart: Irregularly irregular rate and rhythm. Variable S1/S2, Loud systolic murmur heard in the aortic area. Abdomen: Soft and non tender no organomegaly Extremities: No cyanosis,clubbing or edema. Skin: Warm and Dry. Neurology: No focal motor or sensory deficits. Diagnostic Data Last Recorded Lab Results: 01/15/2562701/15/25627 Diagnostic Data: Laboratory Tests Test 01/15/25 07:13 01/15/25 15:05 Prothrombin Time 10.7 SECONDS (9.0-12.0) INR International Normalized Ratio 1.0 INR Activated Partial Thromboplast Time 24 SECONDS (22-32) Fibrinogen 339 MG/DL (177-424) Coagulation Clinical Comments APTT (Heparin Protocol) 37 SECONDS (45-60) L Coagulation Comments Additional Plan Acute hypoxemic respiratory failure Flash pulmonary edema Acute on chronic congestive heart failure, unknown ejection fraction ACS, NSTEMI History of aortic valve replacement Medication noncompliant Patient severe respiratory distress at the time of presentation. Chest x-ray significant for significant pulmonary congestion and edema. EKG was significant for AFib with RVR with a heart rate around 156. He was given aspirin 325 mg p.o. by the EMS. Started the patient on IV heparin drip in view of the underlying NSTEMI. Carvedilol 3.125 mg p.o. b.i.d. Lasix 60 mg once followed by Lasix 40 mg b.i.d. Oxygen support. Currently on BiPAP with a FiO2 of 40%. Pending echocardiogram Strict input and output monitoring. Fluid restriction. The patient's economic development specialist has been consulted by Dr. Valero in the ER. Awaiting recommendations. Prelim echo reported the bedside mentioned that the patient might have vegetations on the valves. Awaiting final report. Starting the patient empirically on IV vancomycin. Blood cultures has been drawn. Continue recommendations per student support services director Atrial fibrillation with RVR Patient came in with a AFib with a heart rate of around 150s. Was initially treated in the ER with the IV metoprolol 5 mg. Received three doses of IV metoprolol. He was later started on carvedilol 3.125 mg p.o. b.i.d. and amiodarone 200 mg p.o. b.i.d. Continue telemetry monitoring. Awaiting Cardiology recommendations. Continue recommendations per student support services director Polysubstance abuse Acute toxic encephalopathy Tox screen positive for fentanyl, amphetamine and cannabis. Substancenavigator consultation recommended. MAYNOR, likely prerenal secondary to renal tubular stasis. Diuresis as above Continue monitoring BMP Seizure disorder We will restart home medication once med reconciliation is done. CODE STATUS: Full code DVT prophylaxis: IV heparin GI prophylaxis: None Diet: Heart healthy diet Disposition: Continue recommendations per student support services director Edd Moya MD Internal Medicine Resident PGY-1 Date of Service: January 15, 2025 Billing Provider: MELY MARSHALL MD, LEONARDO LUIS January 15, 2025 17:22
--- NOTE | 2025-01-15 18:25 | CONSULTATION REPORT ---
MONICA CONNER Yaen MARINE RAILWAY OPERATOR 01/15/25 1825: History of Present Illness Providers to CC CC: DAVEY TAO MD ~ Reason for Admit\Admit Dx: Cardiology consultation Refering MD: none History of Present Illness This is a 49-year-old male with past medical history significant for aortic insufficiency status post surgical aortic valve replacement at [facility] a few years ago. He presented secondary to sudden onset severe shortness of breath requiring BiPAP. Initial CO2 60.4 and patient was minimally responsive and severely short of breath according to documentation. Currently, he is sitting in the in the ICU. He is eating dinner. He is speaking in full sentences. He does have history of drug abuse. He got clear few years ago when he got his valve replacement but has been recently relapsed and is smoking fentanyl now. Denies any IV drug abuse currently or in the past. He was found to have suspicion for endocarditis and was started on IV vancomycin and cardiology consultation was requested with the on-call maintenance team member, Dr. Bella. Currently, he is in atrial fibrillation with rapid ventricular response. Echocardiogram demonstrates aortic valve with significant gradients and stenosis as well as questionable mitral valve endocarditis with at least mild mitral stenosis. Of note several inconsistencies in previous documentation. He has not ever had a TAVR and does not have a maintenance team member and has never been seen by Dr. Bella in the past. Allergies: Coded Allergies: aspirin (Verified Allergy, Unknown, 01/15/25) Home Medications Home Medications Active Reported No Home Medications (Home Med List) Each Past Medical History Medical History Comment Severe aortic insufficiency Substance abuse disorder Seizure disorder Past Surgical History Surgical History Comment Surgical aortic valve replacement Past Social History Social History Comment Currently homeless. Using fentanyl. Denies IV drug use. Physical Exam Last Vital Signs Recorded: RN Vital Signs have been reviewed: Yes, Temperature: 98.6, Source: Temporal, Heart Rate: 97, Respiratory Rate: 22, BP: 113/70, Pulse Oximetry: 97, Weight: 87.400 Physical Exam General: Awake, alert, oriented. No apparent distress Respiratory: Lungs are clear to auscultation bilaterally. No respiratory distress. Chest: Normal shape and size. No accessory muscle use. Cardiovascular: Irregularly irregular. S1-S2. +++ murmur. No gallop, rub. Gastrointestinal: Abdomen is soft. Nontender to palpation. Bowel sounds present. Extremities: No lower extremity edema, cyanosis or clubbing. Neurologic: Alert and oriented x4. Nonfocal Psychiatric: Normal mood and affect. Skin: Normal color. Warm and dry. Review of Systems ROS Patient complains of shortness for breath that has improved. Denies fevers or chills. Denies chest pain or pressure. Otherwise, denies review of systems. Results Echocardiogram Echocardiogram Conclusion LV is mildly dilated with moderate concentric hypertrophy. Overall systolic function appears low normal. LVEF is 50-55%. RV appears mildly dilated with normal contractility. RVSP is estimated at 55 mmHG. Left atrium is severely dilated. S/P SAVR appears well seated with abnormal function. Leaflets appear thickened with reduced mobility. Peak/mean gradients of 79/43 mmHG and a peak velocity of 4.44 m/s. Moderate insufficiency. MV is very thickened, espescially the anterior leaflet with an aspect of mobility, suspicious for endocarditis, reccomend clinical correlation. Probable mild mitral stenosis, peak/mean gradients of 24/11 mmHG and a peak velocity of 2.43 m/s. Increased velocity and gradients likely overexagerated due to regurgitation. Severe mitral regurgitation with flow reversal in pulmonary vein. The tricuspid valve is normal in structure. Mild to moderate tricuspid regurgitation. The pulmonary valve is normal in structure. Trace pulmonic regurgitation. Aortic root is mildly dilated. There is no pericardial effusion. Dictated by:NAKUL BELLA MD Dictation date and time:01/15/25 1623 Diagram Lab Result Diagram: 01/15/25 0628 01/15/25 0628 Assessment/Plan Additional Plan This is a 49-year-old male who presented with significant sudden-onset shortness for breath. 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 --Abx as below. endocarditis of MV. WBCs negative Denies fevers or chills No skin signs of endocarditis ESR:7 Awaiting blood cultures Echo results as above Given endocarditis on echocardiogram with severe mitral insufficiency we will likely need ongoing antibiotics. --recommend Infectious Disease consultation Atrial fibrillation Recommend beta-betsy. Up titrate as needed Polysubstance abuse -recommend consultation from the substance abuse navigator. Supervising MD Supervising Physician: NAKUL Jeffers MD 01/15/25 1635: History of Present Illness Providers to CC CC: DAVEY TAO MD Allergies: Coded Allergies: aspirin (Verified Allergy, Unknown, 01/15/25) Results Diagram Lab Result Diagram: 01/15/25 0628 01/15/25 06 Assessment/Plan Additional Plan Agree with noted by MARINE RAILWAY OPERATOR. 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 Also noted prosthetic AVR stenosis as well. Would recommend ID consultation to initiate treatment for endocarditis and then plan for repeat echo after completion of Abx treatment. Patient will need to remain clean from drug abuse as well. MONICA CONNER NP January 15, 2025 18:25 NAKUL BELLA MD January 15, 2025 18:55
[2025-01-15] MEDS: K and/or MAG REPLACEMENT MC SCH (19:43)
[2025-01-15] MEDS: docusate sod 100mg capsule PO SCH (20:02)
[2025-01-15] MEDS: vancomycin/NS 1 GM ADD-VANTAGE 250 ML IV SCH (20:03)
[2025-01-15] MEDS: furosemide 40mg/4ml inj IV SCH (20:07)
[2025-01-15 20:39] LABS: ALANINE AMINOTRANSFERASE 48 U/L (12-78); ALBUMIN 2.8 G/DL (3.4-5.0); ALBUMIN/GLOBULIN RATIO 0.7 (1.1-1.5); ALKALINE PHOSPHATASE 138 IU/L (46-116); ANION GAP 6 (8-16); ASPARTATE AMINO TRANSFERASE 46 U/L (10-37); BILIRUBIN,TOTAL 0.6 MG/DL (0.1-1.0); BLOOD UREA NITROGEN 25 MG/DL (7-18); BUN/CREATININE RATIO 17.4 (10.0-20.0); CALCIUM 8.6 MG/DL (8.5-10.1); CHLORIDE 104 MMOL/L (99-107); CREATININE 1.44 MG/DL (0.60-1.10); GLUCOSE 134 MG/DL (70-104); MAGNESIUM 1.5 MG/DL (1.5-2.4); PHOSPHORUS 3.4 MG/DL (2.3-4.5); POTASSIUM 4.1 MMOL/L (3.5-5.1); SODIUM 142 MMOL/L (135-145); TOTAL CARBON DIOXIDE 32.5 MMOL/L (24-32); TOTAL PROTEIN 6.7 G/DL (6.4-8.2); eCRCL 78 ML/MIN; eGFR 64 ML/MIN
[2025-01-16] VITALS (25 sets, daily range): BP systolic 90–118; BP diastolic 38–77; PULSE 70–118; RESP 12–29; O2SAT 93–100
[2025-01-16] MEDS: MESSAGE TO NURSING IV ONE ×3 (00:39→16:11)
[2025-01-16] MEDS: morphine 2 MG/ML inj. syringe IV PRN (04:17)
--- NOTE | 2025-01-16 06:48 | PROGRESS NOTE ---
Progress Note Dictate Providers to CC ~ Progress Note: No new acute issues overnight Central Line/PICC still needed: N\A [place] Indications Met/Not Met: F/C Indications Met Antibiotic Ordered?: N/A Subjective Subjective Restless last night Objective Vitals Vital Signs Date Time Temp Pulse Resp B/P (MAP) Pulse Ox O2 Delivery O2 Flow Rate FiO2 01/16/25 06:00 96.8 77 21 90/49 (63) 96 Room Air 01/15/25 21:00 2.0 01/15/25 19:30 28 Lab Results: 01/15/25 0628 01/15/251956 Objective Heart: A Fib Lungs: Decrease BS at bases Abd: BS (+) Ext: No edema Coagulation Studies Laboratory Tests Test 01/15/25 07:13 01/15/25 23:27 Prothrombin Time 10.7 SECONDS (9.0-12.0) INR International Normalized Ratio 1.0 INR Activated Partial Thromboplast Time 24 SECONDS (22-32) Fibrinogen 339 MG/DL (177-424) Coagulation Clinical Comments APTT (Heparin Protocol) 49 SECONDS (45-60) Coagulation Comments Problem\Assessment\Plan Additional Plan 1-Acute Systolic CHF exacerbation -Decrease Lasix -Rate control 2-NSTEMI -Cardiology on case 3-H/O UVALDO Connors Anticipate transfer soon Sepsis Screening Reassessment Date: January 16, 2025 TERESA CONNORS MD January 16, 2025 06:48
[2025-01-16 07:37] LABS: BASOPHILS # (AUTO) 0.1 X10'3 (0-0.2); BASOPHILS % (AUTO) 0.5 % (0-1); EOSINOPHILS % (AUTO) 0.1 % (0-6); HEMATOCRIT 38.6 % (42.0-52.0); HEMOGLOBIN 12.5 g/dl (14.0-17.9); LYMPHOCYTES # (AUTO) 2.3 X10'3 (1.1-4.8); LYMPHOCYTES % (AUTO) 18.6 % (21-51); MEAN CORPUSCULAR HGB CONC 32.5 g/dL (33.0-36.5); MEAN CORPUSCULAR VOLUME 83.1 FL (78-98); MONOCYTES # (AUTO) 0.8 X10'3 (0-0.9); MONOCYTES % (AUTO) 6.1 % (2-12); NEUTROPHILS # (AUTO) 9.4 X10'3 (1.8-7.7); NEUTROPHILS % (AUTO) 74.7 % (42-75); PLATELET COUNT 228 X10'3 (140-440); RED BLOOD COUNT 4.64 X10'6 (4.70-6.10); RED CELL DISTRIBUTION WIDTH 14.9 % (11.5-14.5); WHITE BLOOD COUNT 12.6 X10'3 (4.5-11.0)
[2025-01-16 07:58] LABS: ALANINE AMINOTRANSFERASE 42 U/L (12-78); ALBUMIN/GLOBULIN RATIO 0.7 (1.1-1.5); ALKALINE PHOSPHATASE 132 IU/L (46-116); ANION GAP 6 (8-16); ASPARTATE AMINO TRANSFERASE 49 U/L (10-37); BILIRUBIN,TOTAL 0.8 MG/DL (0.1-1.0); BLOOD UREA NITROGEN 27 MG/DL (7-18); BUN/CREATININE RATIO 21.1 (10.0-20.0); CALCIUM 8.7 MG/DL (8.5-10.1); CHLORIDE 103 MMOL/L (99-107); CREATININE 1.28 MG/DL (0.60-1.10); GLUCOSE 97 MG/DL (70-104); MAGNESIUM 1.6 MG/DL (1.5-2.4); POTASSIUM 4.1 MMOL/L (3.5-5.1); SODIUM 140 MMOL/L (135-145); TOTAL CARBON DIOXIDE 31.2 MMOL/L (24-32); TOTAL PROTEIN 7.1 G/DL (6.4-8.2); eCRCL 88 ML/MIN; eGFR 73 ML/MIN
[2025-01-16] MEDS: acetaZOLAMIDE IV 500mg inj IV SCH (08:35)
[2025-01-16] MEDS: furosemide 40mg tablet PO SCH (08:38)
--- NOTE | 2025-01-16 09:48 | ELECTROCARDIOGRAPH REPORT ---
[facility] Test Date: 2025-01-16 Test Time: 09:45:38 Pat Name: MADDISON ADAMS Department: [facility] 2S Patient ID: [facility]-[id number] Room: [facility] 2004 A Gender: M Brand Strategy Manager: VLADIMIR : 1975 Requested By: SEDA JEFFERS Order Number: [id number] Reading MD: Dr. DESHAUN Donovan Measurements Intervals [place] Rate: 82 P: 0 MS: 0 QRS: 82 QRSD: 116 T: 70 QT: 403 QTc: 471 Interpretive Statements Atrial fibrillation Left ventricular hypertrophy Nonspecific T abnormalities, lateral leads ST elevation, consider anterior injury Electronically Signed On 01-16-2025 20:34:[address] DESHAUN Donovan Please click the below link to view image of tracing.
--- NOTE | 2025-01-16 16:21 | PROGRESS NOTE- Residence ---
Progress Note - Resident Providers to CC Resident Creating Document: MELISSA DENNIS RES CC: RASTA CARLOS MD ~ Antibiotic Timeout Antibiotic Ordered?: No Subjective Patient was examined at bedside. Patient was downgraded to the floor today. Patient is saturating well without any respiratory distress on room air. Objective Vital Signs Date Time Temp Pulse Resp B/P (MAP) Pulse Ox O2 Delivery O2 Flow Rate FiO2 01/16/25 16:00 92 22 104/42 (62) 98 Room Air 01/16/25 15:00 98.2 01/16/25 09:33 0 21 Result Diagram: 01/16/25 0629 01/16/25 06 General: Alert, awake, oriented, not in acute distress HEENT: PERRLA, no icterus, pallor, lymphadenopathy, carotid bruit Respiratory system: Bilateral vesicular breath sounds heard (better heard today relatively), no adventitious breath sounds CVS: S1-S2 heard, 3/6 systolic murmur in the aortic area GI: Soft, nontender, no organomegaly, no guarding/rigidity, bowel sounds present Neuro: No focal neurological deficits present Extremities: No edema cyanosis clubbing/deformities Skin: Warm and dry Coagulation Studies Laboratory Tests Test 01/15/25 07:13 01/16/25 15:03 Prothrombin Time 10.7 SECONDS (9.0-12.0) INR International Normalized Ratio 1.0 INR Activated Partial Thromboplast Time 24 SECONDS (22-32) Fibrinogen 339 MG/DL (177-424) Coagulation Clinical Comments APTT (Heparin Protocol) 58 SECONDS (45-60) Coagulation Comments Assessment Assessment A 49-year-old male with multiple medical comorbidities presented to the ED with altered level of consciousness and severe respiratory distress. Per friend the patient was drinking smoking and using fentanyl the morning before the admission. Patient is admitted for the evaluation and management of acute respiratory failure and fentanyl overdose Plan Plan Acute hypoxemic respiratory failure, improving Flash pulmonary edema Acute on chronic congestive heart failure, unknown ejection fraction ACS, NSTEMI History of aortic valve replacement Medication noncompliant Received aspirin 325 mg p.o. by the EMS. Continue aspirin 81 mg Continue IV heparin drip in view of the underlying NSTEMI for 48 hours Carvedilol 3.125 mg p.o. b.i.d, Lasix 40 mg b.i.d. PARDEEP/ARni not started in view of soft blood pressures Currently on RA Strict input and output monitoring. Fluid restriction. Atrial fibrillation with RVR Patient came in with a AFib with a heart rate of around 150s. Was initially treated in the ER with the IV metoprolol 5 mg. Received three doses of IV metoprolol. Continue carvedilol 3.125 mg p.o. b.i.d. and amiodarone 200 mg p.o. b.i.d. Per cardiology recommendations: Up titrate beta betsy dose as required Continue telemetry monitoring. Continue recommendations per shot peen operator Endocarditis, suspicious Echo: MV is very thickened, espescially the anterior leaflet with an aspect of mobility, suspicious for endocarditis, reccomend clinical correlation. Blood cultures negative, follow up with repeat blood culture Consulted Dr. Greene, awaiting recommendations Polysubstance abuse Acute toxic encephalopathy, improving Tox screen positive for fentanyl, amphetamine and cannabis. Substance navigator consultation recommended. MAYNOR, likely prerenal secondary to renal tubular stasis. Creatinine improving Continue monitoring BMP Seizure disorder Patient does not take any antiseizure medications, Keppra was discontinued on the 01/15/2025 CODE STATUS: Full code DVT prophylaxis: IV heparin Diet: Heart healthy diet Disposition: Downgraded to the floor, follow up with ID recommendations Melissa Dennis MD Internal Medicine, PGY 1 Date of Service: January 16, 2025 Billing Provider: RASTA CARLOS MD Common Visit Codes: [id number] INP/OBS CARE(HIGH) MELISSA DENNIS, RES January 16, 2025 16:21 RASTA CARLOS MD January 16, 2025 18:58
[2025-01-16] MEDS: aspirin 81mg, enteric-coated 1 TAB TABLET.DR PO SCH (17:17)
[2025-01-16] MEDS ORDERED: VANCOMYCIN LEVEL IV ONE (20:30)
[2025-01-17] VITALS (23 sets, daily range): BP systolic 86–122; BP diastolic 34–66; PULSE 73–104; RESP 15–26; O2SAT 94–100
[2025-01-17 00:26] LABS: BASOPHILS # (AUTO) 0.1 X10'3 (0-0.2); BASOPHILS % (AUTO) 0.6 % (0-1); EOSINOPHILS # (AUTO) 0.1 X10'3 (0-0.9); EOSINOPHILS % (AUTO) 0.5 % (0-6); HEMOGLOBIN 13.5 g/dl (14.0-17.9); LYMPHOCYTES # (AUTO) 3.1 X10'3 (1.1-4.8); LYMPHOCYTES % (AUTO) 25.4 % (21-51); MEAN CORPUSCULAR HEMOGLOBIN 26.9 PG (27.0-31.0); MEAN CORPUSCULAR HGB CONC 32.9 g/dL (33.0-36.5); MEAN CORPUSCULAR VOLUME 81.9 FL (78-98); MEAN PLATELET VOLUME 8.3 FL (7.4-10.4); MONOCYTES # (AUTO) 0.7 X10'3 (0-0.9); MONOCYTES % (AUTO) 6.1 % (2-12); NEUTROPHILS # (AUTO) 8.2 X10'3 (1.8-7.7); NEUTROPHILS % (AUTO) 67.4 % (42-75); PLATELET COUNT 239 X10'3 (140-440); RED BLOOD COUNT 5.01 X10'6 (4.70-6.10); RED CELL DISTRIBUTION WIDTH 14.7 % (11.5-14.5); WHITE BLOOD COUNT 12.2 X10'3 (4.5-11.0)
[2025-01-17 00:35] LABS: ALANINE AMINOTRANSFERASE 40 U/L (12-78); ALBUMIN/GLOBULIN RATIO 0.8 (1.1-1.5); ALKALINE PHOSPHATASE 128 IU/L (46-116); ANION GAP 5 (8-16); ASPARTATE AMINO TRANSFERASE 48 U/L (10-37); BILIRUBIN,TOTAL 0.7 MG/DL (0.1-1.0); BLOOD UREA NITROGEN 30 MG/DL (7-18); BUN/CREATININE RATIO 20.1 (10.0-20.0); CALCIUM 8.7 MG/DL (8.5-10.1); CHLORIDE 103 MMOL/L (99-107); CREATININE 1.49 MG/DL (0.60-1.10); GLUCOSE 96 MG/DL (70-104); MAGNESIUM 1.5 MG/DL (1.5-2.4); POTASSIUM 4.2 MMOL/L (3.5-5.1); SODIUM 137 MMOL/L (135-145); TOTAL CARBON DIOXIDE 29.3 MMOL/L (24-32); eCRCL 75 ML/MIN; eGFR 61 ML/MIN
[2025-01-17] MEDS: MESSAGE TO NURSING IV ONE ×4 (00:49→13:18)
[2025-01-17] MEDS: acetaminophen 325mg tablet PO PRN (09:03)
[2025-01-17] MEDS ORDERED: potassium Cl 40MEQ/1/2NS 520ml 520 ML IV PRN (10:15)
[2025-01-17] MEDS ORDERED: potassium Cl 40MEQ/270ML bag 250 ML IV PRN (10:15)
[2025-01-17] MEDS ORDERED: potassium Cl 20mEq/100mL bag 100 ML IV PRN (10:15)
[2025-01-17] MEDS ORDERED: buprenorphine/naloxone 8MG-2MG SUBlingual film SL SCH (10:15)
[2025-01-17] MEDS ORDERED: potassium CL 10mEq/100ml bag 100 ML IV PRN (10:15)
[2025-01-17] MEDS ORDERED: buprenorphine/naloxone 2-0.5mg sublingual tablet SL SCH (11:19)
[2025-01-17] MEDS: VANCOMYCIN 2GM/400ML H20 (PEG) 400 ML IV ONE (11:20)
[2025-01-17] MEDS: buprenorphine/naloxone 2-0.5mg sublingual tablet SL SCH (11:36)
[2025-01-17] MEDS: potassium Cl 20 mEq SR tablet PO PRN (11:36)
[2025-01-17] MEDS: multivitamins, therapeutics tablet PO SCH (11:36)
[2025-01-17] MEDS: magnesium sulf-water 4G/100mL 100 ML IV PRN (15:07)
--- NOTE | 2025-01-17 15:37 | PROGRESS NOTE- Residence ---
Progress Note - Resident Providers to CC Resident Creating Document: MELISSA DENNIS RES CC: RASTA CARLOS MD ~ Antibiotic Timeout Antibiotic Ordered?: Yes Subjective Patient was examined at bedside. Patient is comfortably sitting and having food. Much improved with his mental status and respirations. Objective Vital Signs Date Time Temp Pulse Resp B/P (MAP) Pulse Ox O2 Delivery O2 Flow Rate FiO2 01/17/25 13:00 90 17 100/50 (67) 97 Room Air 01/17/25 09:00 97.9 01/16/25 19:55 0 21 Result Diagram: 01/17/25 0000 01/17/25 0000 General: Alert, awake, oriented, not in acute distress HEENT: PERRLA, no icterus, pallor, lymphadenopathy, carotid bruit Respiratory system: Bilateral vesicular breath sounds heard (better heard today relatively), no adventitious breath sounds CVS: S1-S2 heard, 3/6 systolic murmur in the aortic area GI: Soft, nontender, no organomegaly, no guarding/rigidity, bowel sounds present Neuro: No focal neurological deficits present Extremities: No edema cyanosis clubbing/deformities Skin: Warm and dry Coagulation Studies Laboratory Tests Test 01/15/25 07:13 01/17/25 12:30 Prothrombin Time 10.7 SECONDS (9.0-12.0) INR International Normalized Ratio 1.0 INR Activated Partial Thromboplast Time 24 SECONDS (22-32) Fibrinogen 339 MG/DL (177-424) Coagulation Clinical Comments APTT (Heparin Protocol) 43 SECONDS (45-60) L Coagulation Comments Assessment Assessment A 49-year-old male with multiple medical comorbidities presented to the ED with altered level of consciousness and severe respiratory distress. Per friend the patient was drinking smoking and using fentanyl the morning before the admission. Patient is admitted for the evaluation and management of acute respiratory failure and fentanyl overdose Plan Plan Acute on chronic congestive heart failure, unknown ejection fraction ACS, NSTEMI History of aortic valve replacement Medication noncompliant Continue aspirin 81 mg Completed 48 hours of IV heparin drip Carvedilol 3.125 mg p.o. b.i.d, Lasix 40 mg b.i.d., losartan 25 mg We will re-evaluate to decrease Lasix dosing tomorrow Currently on RA Strict input and output monitoring. Fluid restriction. Atrial fibrillation with RVR Patient came in with a AFib with a heart rate of around 150s. Was initially treated in the ER with the IV metoprolol 5 mg. Received three doses of IV metoprolol. Continue carvedilol 3.125 mg p.o. b.i.d. and amiodarone 200 mg p.o. b.i.d. Per cardiology recommendations: Up titrate beta betsy dose as required Continue telemetry monitoring. Endocarditis, suspicious Echo: MV is very thickened, espescially the anterior leaflet with an aspect of mobility, suspicious for endocarditis, reccomend clinical correlation. Blood cultures negative, follow up with repeat blood culture Dr. Greene recommended follow up with blood culture IV vancomycin pharmacy to dose (we will hold it of the cultures turned out to be negative otherwise might have to the severe for at least six weeks) Polysubstance abuse Acute toxic encephalopathy, improving Tox screen positive for fentanyl, amphetamine and cannabis. Substance navigator consultation recommended. MAYNOR, likely prerenal secondary to renal tubular stasis. Creatinine worsening Continue monitoring BMP We will consult Nephrology if it continues to worsen Seizure disorder Patient does not take any antiseizure medications, Keppra was discontinued on the 01/15/2025 Acute hypoxemic respiratory failure, resolved Flash pulmonary edema, resolved CODE STATUS: Full code DVT prophylaxis: IV heparin Diet: Heart healthy diet Disposition: Continue care in PCU, follow up with repeat BNP Melissa Dennis MD Internal Medicine, PGY 1 Date of Service: January 17, 2025 Billing Provider: RASTA CARLOS MD Common Visit Codes: [id number] INP/OBS CARE(HIGH) MELISSA DENNIS, RES January 17, 2025 15:37 RASTA CARLOS MD January 17, 2025 18:35
[2025-01-17 16:08] LABS: PRO BRAIN NATRIURETIC PEPTIDE 6024 PG/ML (0-125)
[2025-01-17] MEDS: magnesium sulf-water 2g/50mL 50 ML IV PRN (19:19)
[2025-01-17] MEDS ORDERED: haloperidol lactate 5mg/ml inj IM PRN (19:50)
[2025-01-17] MEDS: LORazepam 1 MG tablet PO PRN (20:44)
[2025-01-17] MEDS: folic acid 1mg/0.2ml inj IV SCH (20:44)
[2025-01-17] MEDS: thiamine 100mg/ml 2ml inj. IV SCH (20:44)
[2025-01-17] MEDS: vancomycin/NS 1 GM ADD-VANTAGE 250 ML IV SCH (23:24)
[2025-01-18] VITALS (20 sets, daily range): BP systolic 84–123; BP diastolic 35–74; PULSE 68–138; RESP 13–22; TEMP 97.7–98.3; O2SAT 96–100
[2025-01-18 05:14] LABS: BASOPHILS % (AUTO) 0.5 % (0-1); EOSINOPHILS # (AUTO) 0.2 X10'3 (0-0.9); EOSINOPHILS % (AUTO) 2.1 % (0-6); HEMATOCRIT 41.6 % (42.0-52.0); HEMOGLOBIN 13.7 g/dl (14.0-17.9); LYMPHOCYTES # (AUTO) 3.1 X10'3 (1.1-4.8); LYMPHOCYTES % (AUTO) 31.4 % (21-51); MEAN CORPUSCULAR HEMOGLOBIN 26.8 PG (27.0-31.0); MEAN CORPUSCULAR VOLUME 81.4 FL (78-98); MEAN PLATELET VOLUME 7.8 FL (7.4-10.4); MONOCYTES # (AUTO) 0.9 X10'3 (0-0.9); MONOCYTES % (AUTO) 8.9 % (2-12); NEUTROPHILS # (AUTO) 5.6 X10'3 (1.8-7.7); NEUTROPHILS % (AUTO) 57.1 % (42-75); PLATELET COUNT 235 X10'3 (140-440); RED BLOOD COUNT 5.11 X10'6 (4.70-6.10); RED CELL DISTRIBUTION WIDTH 15.1 % (11.5-14.5); WHITE BLOOD COUNT 9.9 X10'3 (4.5-11.0)
[2025-01-18 05:19] LABS: PROTHROMBIN TIME 10.4 SECONDS (9.0-12.0)
[2025-01-18 05:27] LABS: ALANINE AMINOTRANSFERASE 44 U/L (12-78); ALBUMIN 2.8 G/DL (3.4-5.0); ALBUMIN/GLOBULIN RATIO 0.7 (1.1-1.5); ALKALINE PHOSPHATASE 118 IU/L (46-116); AMYLASE 81 U/L (25-115); ANION GAP 8 (8-16); ASPARTATE AMINO TRANSFERASE 42 U/L (10-37); BILIRUBIN,TOTAL 0.4 MG/DL (0.1-1.0); BLOOD UREA NITROGEN 35 MG/DL (7-18); BUN/CREATININE RATIO 26.5 (10.0-20.0); CALCIUM 8.4 MG/DL (8.5-10.1); CHLORIDE 103 MMOL/L (99-107); CREATININE 1.32 MG/DL (0.60-1.10); GLUCOSE 102 MG/DL (70-104); LIPASE 34 U/L (16-77); MAGNESIUM 2.4 MG/DL (1.5-2.4); PHOSPHORUS 3.4 MG/DL (2.3-4.5); SODIUM 136 MMOL/L (135-145); TOTAL CARBON DIOXIDE 25.4 MMOL/L (24-32); eCRCL 85 ML/MIN; eGFR 70 ML/MIN
[2025-01-18] MEDS: losartan 25mg tablet PO SCH (08:00)
[2025-01-18] MEDS: multivitamins, therapeutics tablet PO SCH (08:00)
[2025-01-18 09:51] LABS: TOTAL PROTEIN,URINE RANDOM 14.2 MG/DL
[2025-01-18] MEDS: apixaban 5mg tablet PO SCH (10:09)
[2025-01-18 10:10] LABS: UA EOSINOPHILS NO EOS /HPF
--- NOTE | 2025-01-18 14:34 | PROGRESS NOTE- Residence ---
Progress Note - Resident Providers to CC Resident Creating Document: ONELIA PENALOZA RES ~ Antibiotic Timeout Antibiotic Ordered?: Yes Subjective Patient was examined at bedside. Discussed with Dr. Greene about the possibility of endocarditis on the echocardiogram. Given the negative blood cultures, normal leukocyte count and no clinical features suggestive of endocarditis decision was taken to stopped the vancomycin. Patient is comfortably sitting and having food. Much improved with his mental status and respirations. Objective Vital Signs Date Time Temp Pulse Resp B/P (MAP) Pulse Ox O2 Delivery O2 Flow Rate FiO2 01/18/25 14:01 93 17 84/35 (51) 99 Room Air 01/18/25 10:18 98.4 01/18/25 08:00 0.0 01/17/25 22:00 21 Result Diagram: 01/18/25 0428 01/18/25 0428 General: Alert, awake, oriented, not in acute distress HEENT: PERRLA, no icterus, pallor, lymphadenopathy, carotid bruit Respiratory system: Bilateral vesicular breath sounds heard (better heard today relatively), no adventitious breath sounds CVS: S1-S2 heard, 3/6 systolic murmur in the aortic area GI: Soft, nontender, no organomegaly, no guarding/rigidity, bowel sounds present Neuro: No focal neurological deficits present Extremities: No edema cyanosis clubbing/deformities Skin: Warm and dry Coagulation Studies Laboratory Tests Test 01/15/25 07:13 01/17/25 12:30 01/18/25 04:28 Activated Partial Thromboplast Time 24 SECONDS (22-32) Fibrinogen 339 MG/DL (177-424) Coagulation Clinical Comments APTT (Heparin Protocol) 43 SECONDS (45-60) L Prothrombin Time 10.4 SECONDS (9.0-12.0) INR International Normalized Ratio 1.0 INR Coagulation Comments Assessment Assessment A 49-year-old male with multiple medical comorbidities presented to the ED with altered level of consciousness and severe respiratory distress. Per friend the patient was drinking smoking and using fentanyl the morning before the admission. Patient is admitted for the evaluation and management of acute respiratory failure and fentanyl overdose Plan Plan Acute on chronic congestive heart failure, unknown ejection fraction ACS, NSTEMI History of aortic valve replacement Medication noncompliant Continue aspirin 81 mg Completed 48 hours of IV heparin drip Carvedilol 3.125 mg p.o. b.i.d, Lasix 40 mg b.i.d., losartan 25 mg We will re-evaluate to decrease Lasix dosing tomorrow Currently on RA Strict input and output monitoring. Fluid restriction. 01/18/2025: Currently on 40 mg p.o. daily dose of Lasix Atrial fibrillation with RVR Patient came in with a AFib with a heart rate of around 150s. Was initially treated in the ER with the IV metoprolol 5 mg. Received three doses of IV metoprolol. Continue carvedilol 3.125 mg p.o. b.i.d. and amiodarone 200 mg p.o. b.i.d. Per cardiology recommendations: Up titrate beta betsy dose as required Continue telemetry monitoring. 01/18/2025: Started on Eliquis 5 mg b.i.d. for anticoagulation Endocarditis, ruled out Echo: MV is very thickened, espescially the anterior leaflet with an aspect of mobility, suspicious for endocarditis, reccomend clinical correlation. Blood cultures negative, follow up with repeat blood culture Dr. Greene recommended follow up with blood culture IV vancomycin pharmacy to dose (we will hold it of the cultures turned out to be negative otherwise might have to the severe for at least six weeks) 01/18/2025: Given no clinical features and negative blood cultures, no evidence of endocarditis. Vancomycin has been stopped after discussing with Dr. Greene ID Polysubstance abuse Acute toxic encephalopathy, improving Tox screen positive for fentanyl, amphetamine and cannabis. Substance navigator consultation recommended. MAYNOR, likely prerenal secondary to renal tubular stasis. Creatinine worsening Continue monitoring BMP We will consult Nephrology if it continues to worsen 01/18/2025: Creatinine improving. Urine lytes ordered. Follow up Seizure disorder Patient does not take any antiseizure medications, Keppra was discontinued on the 01/15/2025 Acute hypoxemic respiratory failure, resolved Flash pulmonary edema, resolved CODE STATUS: Full code DVT prophylaxis: IV heparin Diet: Heart healthy diet Disposition: Transfer to PCU. continue telemetry monitoring Onelia Pulliam MD Internal Medicine, PGY 1 Date of Service: January 18, 2025 Billing Provider: RASTA CARLOS MD Common Visit Codes: [id number] INP/OBS CARE(HIGH) ONELIA PENALOZA, RES January 18, 2025 14:34 RASTA CARLOS MD January 18, 2025 18:46
[2025-01-18] MEDS: VANCOMYCIN LEVEL IV ONE (23:24)
[2025-01-19] VITALS (8 sets, daily range): BP systolic 92–121; BP diastolic 46–67; PULSE 65–99; RESP 16–20; TEMP 97.3–98.6; O2SAT 98–100
[2025-01-19] MEDS ORDERED: AMI200T PO (08:24)
[2025-01-19] MEDS ORDERED: CARV-164 PO (08:24)
[2025-01-19] MEDS ORDERED: APIX5TAB3 PO (08:24)
[2025-01-19] MEDS ORDERED: FURO40TA4 PO (08:24)
[2025-01-19 09:28] LABS: BASOPHILS # (AUTO) 0.1 X10'3 (0-0.2); BASOPHILS % (AUTO) 0.7 % (0-1); EOSINOPHILS # (AUTO) 0.2 X10'3 (0-0.9); EOSINOPHILS % (AUTO) 2.4 % (0-6); HEMATOCRIT 43.3 % (42.0-52.0); LYMPHOCYTES # (AUTO) 1.9 X10'3 (1.1-4.8); MEAN CORPUSCULAR HEMOGLOBIN 26.7 PG (27.0-31.0); MEAN CORPUSCULAR HGB CONC 32.4 g/dL (33.0-36.5); MEAN CORPUSCULAR VOLUME 82.3 FL (78-98); MEAN PLATELET VOLUME 7.7 FL (7.4-10.4); MONOCYTES # (AUTO) 0.5 X10'3 (0-0.9); MONOCYTES % (AUTO) 7.6 % (2-12); NEUTROPHILS # (AUTO) 4.4 X10'3 (1.8-7.7); NEUTROPHILS % (AUTO) 62.3 % (42-75); PLATELET COUNT 252 X10'3 (140-440); RED BLOOD COUNT 5.26 X10'6 (4.70-6.10); RED CELL DISTRIBUTION WIDTH 15.2 % (11.5-14.5)
[2025-01-19 09:47] LABS: INR 1.1 INR
[2025-01-19 09:58] LABS: ALANINE AMINOTRANSFERASE 39 U/L (12-78); ALBUMIN 3.2 G/DL (3.4-5.0); ALBUMIN/GLOBULIN RATIO 0.7 (1.1-1.5); ALKALINE PHOSPHATASE 124 IU/L (46-116); AMYLASE 84 U/L (25-115); ANION GAP 9 (8-16); ASPARTATE AMINO TRANSFERASE 35 U/L (10-37); BILIRUBIN,TOTAL 0.5 MG/DL (0.1-1.0); BLOOD UREA NITROGEN 32 MG/DL (7-18); BUN/CREATININE RATIO 19.6 (10.0-20.0); CALCIUM 8.9 MG/DL (8.5-10.1); CHLORIDE 101 MMOL/L (99-107); CREATININE 1.63 MG/DL (0.60-1.10); GLUCOSE 79 MG/DL (70-104); LIPASE 27 U/L (16-77); MAGNESIUM 1.9 MG/DL (1.5-2.4); PHOSPHORUS 3.2 MG/DL (2.3-4.5); POTASSIUM 4.3 MMOL/L (3.5-5.1); SODIUM 136 MMOL/L (135-145); TOTAL CARBON DIOXIDE 25.6 MMOL/L (24-32); TOTAL PROTEIN 7.6 G/DL (6.4-8.2); eCRCL 69 ML/MIN; eGFR 55 ML/MIN
--- NOTE | 2025-01-19 11:39 | PROGRESS NOTE ---
Progress Note Cardiology Providers to CC ~ Subjective Subjective No shortness a breath. Up and ambulatory. No chest pain or pressure. Objective Result Diagram: 01/19/25 0910 01/19/25 0910 Objective General: Awake, alert, oriented. No apparent distress Respiratory: Lungs are clear to auscultation bilaterally. No respiratory distress. Chest: Normal shape and size. No accessory muscle use. Cardiovascular: Irregularly irregular. S1-S2. +++ murmur. Gastrointestinal: Abdomen is soft. Nontender to palpation. Bowel sounds present. Extremities: No lower extremity edema, cyanosis or clubbing. Neurologic: Alert and oriented x4. Nonfocal Psychiatric: Normal mood and affect. Skin: Normal color. Warm and dry. Coagulation Studies Laboratory Tests Test 01/15/25 07:13 01/17/25 12:30 01/19/25 09:10 Activated Partial Thromboplast Time 24 SECONDS (22-32) Fibrinogen 339 MG/DL (177-424) Coagulation Clinical Comments APTT (Heparin Protocol) 43 SECONDS (45-60) L Prothrombin Time 11.0 SECONDS (9.0-12.0) INR International Normalized Ratio 1.1 INR Coagulation Comments Problem\Assessment\Plan Additional Plan This is a 49-year-old male who presented with significant sudden-onset shortness for breath. 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 endocarditis of MV as well as question of endocarditis on AV WBCs negative Denies fevers or chills No skin signs of endocarditis BC neg ESR:7 Echo results as above One major and one minor criteria on Mcgowan's criteria for endocarditis. --vancomycin has been stopped per hospitalist service. --recommend Infectious Disease consultation. --recommend repeat echocardiogram in six weeks Atrial fibrillation Currently in atrial flutter. Rate controlled. Recommend beta-betsy. Up titrate as needed. May continue amiodarone 200 mg b.i.d. for two weeks followed by 200 mg daily with close outpatient follow up. We will need to follow with primary care provider. Chads Vasc: 1. Was started on oral anticoagulation by hospitalist service. NSTEMI PR type 2 secondary to flash pulmonary edema and atrial fibrillation/flutter No aspirin as he will be on oral anticoagulation. Completed 48 hours of heparin Polysubstance abuse -recommend consultation from the substance abuse navigator. Acute kidney injury --management per hospitalist Patient will need to follow up with primary care provider and referral to electronic publishing specialist as an outpatient. Cardiology condition stable. Please contact myself or Dr. Berumen if any further cardiology needs Supervising Physician: MONICA Ann NP January 19, 2025 11:39
[2025-01-19] MEDS: normal saline 500ml IV soln 500 ML IV ONE (12:29)
--- NOTE | 2025-01-19 12:55 | RADIOLOGY REPORT ---
INDICATION: MAYNOR, rule out hydronephrosis TECHNIQUE: Multiple real-time sonographic images of the kidneys and bladder were obtained. COMPARISON: None FINDINGS: The right kidney measures 10.2 cm in length, which is normal in size. There is normal echog enicity of the right kidney. No hydronephrosis. The left kidney measures 9.4 cm in length, which is normal in size. There is normal echogenicity of t he left kidney. No hydronephrosis. No large intraluminal masses are seen in the bladder. IMPRESSION: 1. Normal sonographic appearance of the kidneys. No hydronephrosis.
[2025-01-19 13:47] LABS: ALANINE AMINOTRANSFERASE 37 U/L (12-78); ALBUMIN 3.1 G/DL (3.4-5.0); ALBUMIN/GLOBULIN RATIO 0.7 (1.1-1.5); ALKALINE PHOSPHATASE 117 IU/L (46-116); ANION GAP 6 (8-16); ASPARTATE AMINO TRANSFERASE 36 U/L (10-37); BILIRUBIN,TOTAL 0.5 MG/DL (0.1-1.0); BLOOD UREA NITROGEN 34 MG/DL (7-18); BUN/CREATININE RATIO 21.1 (10.0-20.0); CALCIUM 8.7 MG/DL (8.5-10.1); CHLORIDE 101 MMOL/L (99-107); CREATININE 1.61 MG/DL (0.60-1.10); GLUCOSE 101 MG/DL (70-104); POTASSIUM 5.1 MMOL/L (3.5-5.1); SODIUM 135 MMOL/L (135-145); TOTAL CARBON DIOXIDE 27.6 MMOL/L (24-32); TOTAL PROTEIN 7.3 G/DL (6.4-8.2); eCRCL 70 ML/MIN; eGFR 56 ML/MIN
--- NOTE | 2025-01-19 14:01 | PROGRESS NOTE- Residence ---
Progress Note - Resident Providers to CC Resident Creating Document: FRANCES PENALOZA, RES ~ Antibiotic Timeout Antibiotic Ordered?: No Subjective Patient was examined at bedside. Discussed about discharge planning and need to follow up with office supervisor and PCP, also dress the importance of blood pressure monitoring and compliance with his meds. Per transplant case manager he will be going to [place] at discharge. Creatinine has trended up from 1.3-1.6 despite 0.5 L NS bolus. Renal ultrasound is unremarkable but urine lytes show a FENA of 1.7 which is indeterminate for prerenal or renal MAYNOR. Consider Nephrology consultation in the a.m. if creatinine continues to trend upwards. Objective Vital Signs Date Time Temp Pulse Resp B/P (MAP) Pulse Ox O2 Delivery O2 Flow Rate FiO2 01/19/25 08:00 16 99 Room Air 0.0 01/19/25 07:53 103 01/19/25 07:00 98.6 121/55 (77) 01/18/25 20:00 21 Result Diagram: 01/19/25 0910 01/19/25 1306 General: Alert, awake, oriented, not in acute distress HEENT: PERRLA, no icterus, pallor, lymphadenopathy, carotid bruit Respiratory system: Bilateral vesicular breath sounds heard (better heard today relatively), no adventitious breath sounds CVS: S1-S2 heard, 3/6 systolic murmur in the aortic area GI: Soft, nontender, no organomegaly, no guarding/rigidity, bowel sounds present Neuro: No focal neurological deficits present Extremities: No edema cyanosis clubbing/deformities Skin: Warm and dry Coagulation Studies Laboratory Tests Test 01/15/25 07:13 01/17/25 12:30 01/19/25 09:10 Activated Partial Thromboplast Time 24 SECONDS (22-32) Fibrinogen 339 MG/DL (177-424) Coagulation Clinical Comments APTT (Heparin Protocol) 43 SECONDS (45-60) L Prothrombin Time 11.0 SECONDS (9.0-12.0) INR International Normalized Ratio 1.1 INR Coagulation Comments Assessment Assessment A 49-year-old male with multiple medical comorbidities presented to the ED with altered level of consciousness and severe respiratory distress. Per friend the patient was drinking smoking and using fentanyl the morning before the admission. Patient is admitted for the evaluation and management of acute respiratory failure and fentanyl overdose Plan Plan Acute on chronic congestive heart failure, unknown ejection fraction ACS, NSTEMI History of aortic valve replacement Medication noncompliant Continue aspirin 81 mg Completed 48 hours of IV heparin drip Carvedilol 3.125 mg p.o. b.i.d, Lasix 40 mg b.i.d., losartan 25 mg We will re-evaluate to decrease Lasix dosing tomorrow Currently on RA Strict input and output monitoring. Fluid restriction. 01/19/2025: Currently on 40 mg p.o. daily dose of Lasix Atrial fibrillation with RVR Patient came in with a AFib with a heart rate of around 150s. Was initially treated in the ER with the IV metoprolol 5 mg. Received three doses of IV metoprolol. Continue carvedilol 3.125 mg p.o. b.i.d. and amiodarone 200 mg p.o. b.i.d. Per cardiology recommendations: Up titrate beta betsy dose as required Continue telemetry monitoring. 01/18/2025: Started on Eliquis 5 mg b.i.d. for anticoagulation 01/19/2025: Continues to be in A flutter with heart rate of 117 Endocarditis, ruled out Echo: MV is very thickened, espescially the anterior leaflet with an aspect of mobility, suspicious for endocarditis, reccomend clinical correlation. Blood cultures negative, follow up with repeat blood culture Dr. Greene recommended follow up with blood culture IV vancomycin pharmacy to dose (we will hold it of the cultures turned out to be negative otherwise might have to the severe for at least six weeks) 01/18/2025: Given no clinical features and negative blood cultures, no evidence of endocarditis. Vancomycin has been stopped after discussing with Dr. Greene ID 01/19/2025: Patient has one major and one minor criteria for infective endocarditis. However diagnosis of endocarditis requests to major criteria or one major and three minor criteria. Recommend follow up with office supervisor and Infectious diseases outpatient for further evaluation. Polysubstance abuse Acute toxic encephalopathy, improving Tox screen positive for fentanyl, amphetamine and cannabis. Substance navigator consultation recommended. MAYNOR, likely prerenal secondary to renal tubular stasis. Creatinine worsening Continue monitoring BMP We will consult Nephrology if it continues to worsen 01/18/2025: Creatinine improving. Urine lytes ordered. Follow up 01/19/2025: Creatinine has trended up from 1.3-1.6 despite 0.5 L NS bolus. Renal ultrasound is unremarkable but urine lytes show a FENA of 1.7 which is indeterminate for prerenal or renal MAYNOR. Consider Nephrology consultation in the a.m. if creatinine continues to trend upwards. Repeat UA ordered to look for any urine casts and eosinophils/RBC, proteinuria. Seizure disorder Patient does not take any antiseizure medications, Keppra was discontinued on the 01/15/2025 Acute hypoxemic respiratory failure, resolved Flash pulmonary edema, resolved CODE STATUS: Full code DVT prophylaxis: IV heparin Diet: Heart healthy diet Disposition: Continue care in PCU. continue telemetry monitoring. Anticipate discharge tomorrow if renal function improves Frances Borges MD Internal Medicine, PGY 1 Date of Service: January 19, 2025 Billing Provider: MELY MARSHALL MD,FRANCES BORGES, RES January 19, 2025 14:01
[2025-01-20] VITALS (7 sets, daily range): BP systolic 93–113; BP diastolic 52–71; PULSE 69–92; RESP 16–18; TEMP 97–98.6; O2SAT 98–100
[2025-01-20 07:36] LABS: BASOPHILS # (AUTO) 0.1 X10'3 (0-0.2); BASOPHILS % (AUTO) 0.9 % (0-1); EOSINOPHILS # (AUTO) 0.2 X10'3 (0-0.9); EOSINOPHILS % (AUTO) 3.2 % (0-6); HEMATOCRIT 40.5 % (42.0-52.0); HEMOGLOBIN 13.3 g/dl (14.0-17.9); LYMPHOCYTES # (AUTO) 2.5 X10'3 (1.1-4.8); LYMPHOCYTES % (AUTO) 32.4 % (21-51); MEAN CORPUSCULAR HGB CONC 32.9 g/dL (33.0-36.5); MEAN PLATELET VOLUME 8.1 FL (7.4-10.4); MONOCYTES # (AUTO) 0.6 X10'3 (0-0.9); MONOCYTES % (AUTO) 8.4 % (2-12); NEUTROPHILS # (AUTO) 4.2 X10'3 (1.8-7.7); NEUTROPHILS % (AUTO) 55.1 % (42-75); PLATELET COUNT 248 X10'3 (140-440); RED BLOOD COUNT 4.94 X10'6 (4.70-6.10); RED CELL DISTRIBUTION WIDTH 15.5 % (11.5-14.5); WHITE BLOOD COUNT 7.7 X10'3 (4.5-11.0)
[2025-01-20 07:49] LABS: INR 1.1 INR; PROTHROMBIN TIME 10.8 SECONDS (9.0-12.0)
[2025-01-20 08:01] LABS: ALANINE AMINOTRANSFERASE 44 U/L (12-78); ALBUMIN 3.1 G/DL (3.4-5.0); ALBUMIN/GLOBULIN RATIO 0.7 (1.1-1.5); ALKALINE PHOSPHATASE 114 IU/L (46-116); AMYLASE 108 U/L (25-115); ANION GAP 7 (8-16); ASPARTATE AMINO TRANSFERASE 38 U/L (10-37); BILIRUBIN,TOTAL 0.3 MG/DL (0.1-1.0); BLOOD UREA NITROGEN 33 MG/DL (7-18); BUN/CREATININE RATIO 21.4 (10.0-20.0); CALCIUM 8.6 MG/DL (8.5-10.1); CHLORIDE 100 MMOL/L (99-107); CREATININE 1.54 MG/DL (0.60-1.10); GLUCOSE 97 MG/DL (70-104); LIPASE 29 U/L (16-77); PHOSPHORUS 3.6 MG/DL (2.3-4.5); SODIUM 135 MMOL/L (135-145); TOTAL CARBON DIOXIDE 28.1 MMOL/L (24-32); TOTAL PROTEIN 7.4 G/DL (6.4-8.2); eCRCL 73 ML/MIN; eGFR 59 ML/MIN
[2025-01-20 08:11] LABS: POTASSIUM 4.9 MMOL/L (3.5-5.1)
[2025-01-21] MEDS ORDERED: thiamine 100mg tablet PO SCH (08:00)
[2025-01-22] MEDS ORDERED: folic acid 1mg tablet PO SCH (08:00)
== END 2025-01-20 13:25 | disposition home or self-care (01) | DRG 206 ==
LOC: ER 06:13 → ED HOLD 08:10 → CICU 2S 09:51 → PCU 3S 01-18 16:36
PROVIDERS: ADMIT Internal Medicine Critical Care Medicine; ATTEND Internal Medicine Critical Care Medicine
PROC: 5A09357 Assistance with Respiratory Ventilation, Less than 24 Consecutive Hours, Continuous Positive Airway Pressure (ICD-10-PCS; principal; 2025-01-15)
DX: T82.857A Stenosis of other cardiac prosthetic devices, implants and grafts, initial encounter (principal); J96.01 Acute respiratory failure with hypoxia; N17.0 Acute kidney failure with tubular necrosis; I21.4 Non-ST elevation (NSTEMI) myocardial infarction; G92.8 Other toxic encephalopathy; I48.91 Unspecified atrial fibrillation; G40.909 Epilepsy, unspecified, not intractable, without status epilepticus; I50.41 Acute combined systolic (congestive) and diastolic (congestive) heart failure; F19.10 Other psychoactive substance abuse, uncomplicated; I05.9 Rheumatic mitral valve disease, unspecified; J45.909 Unspecified asthma, uncomplicated; Y83.8 Other surgical procedures as the cause of abnormal reaction of the patient, or of later complication, without mention of misadventure at the time of the procedure; J96.02 Acute respiratory failure with hypercapnia; Z59.00 Homelessness unspecified; Z95.2 Presence of prosthetic heart valve; Z88.6 Allergy status to analgesic agent; Z91.148 Patient's other noncompliance with medication regimen for other reason; Y92.89 Other specified places as the place of occurrence of the external cause
CPT/HCPCS: 36415; 36600; 71045; 76770; 80048; 80053; 80076; 80305; 81001; 82150; 82570; 82803; 83605; 83690; 83735; 83880; 83935; 84100; 84133; 84145; 84156; 84300; 84439; 84443; 84484; 85018; 85025; 85384; 85610; 85651; 85730; 86140; 87040; 87081; 87207; 93005; 93306; 94640; 94660; 94760; 96365; 96375; 99291; A4615; A6250; G0378; J1120; J1644; J1938; J1940; J2270; J2919; J3370; J3372; J3411; J3475; J3490; J7040; J7050

== ENCOUNTER 2025-02-16 12:23 | Emergency (ER) | payer MEDICAID ==
[~2025-02-16] VITALS: Ht 182.9 cm; Wt 90.9 kg
[~2025-02-16 12:23] MED LIST changes: -ALBU18HF2 INH; +AMI200T PO; +APIX5TAB3 PO; +CARV-164 PO; -EMOL78CR TOP; +FURO40TA4 PO; -HYDR-4383 PO; -KEP500T PO; +NO HOME MEDS; -[UNRECOGNIZED DRUG - CODE] PO
[2025-02-16 12:24] VITALS: BP 114/56; PULSE 92; RESP 15; O2SAT 99
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
[2025-02-16] MEDS ORDERED: AMI200T PO (14:42)
[2025-02-16] MEDS ORDERED: CARV-164 PO (14:42)
[2025-02-16] MEDS ORDERED: APIX5TAB3 PO (14:42)
[2025-02-16] MEDS ORDERED: FURO40TA4 PO (14:42)
[2025-02-16 14:51] VITALS: TEMP 97.2
== END 2025-02-16 14:53 | disposition home or self-care (01) ==
LOC: ER 12:24
DX: Z00.8 Encounter for other general examination (principal); Z76.0 Encounter for issue of repeat prescription; F15.90 Other stimulant use, unspecified, uncomplicated; F11.90 Opioid use, unspecified, uncomplicated; Z88.6 Allergy status to analgesic agent; Z88.8 Allergy status to other drugs, medicaments and biological substances
CPT/HCPCS: 99281

== ENCOUNTER 2025-03-24 05:42 | Emergency (ER) | payer MEDICAID ==
[~2025-03-24] VITALS: Ht 190.5 cm; Wt 85.0 kg
[~2025-03-24 05:42] MED LIST changes: -AMI200T PO; +AMIO200T76 PO
[2025-03-24 05:43] VITALS: TEMP 98.2
--- NOTE | 2025-03-24 05:52 | ELECTROCARDIOGRAPH REPORT ---
[facility] Test Date: 2025-03-24 Test Time: 05:47:35 Pat Name: MADDISON ADAMS Department: EMERGENCY ROOM Patient [facility]: [id number] Room: Gender: M Tufter Operator: : 1975 Requested By: SEDA JEFFERS Order Number: [id number] Reading MD: Dr. Seda Jeffers Measurements Intervals Kitzmiller Rate: 105 P: 0 MD: 0 QRS: 88 QRSD: 112 T: 63 QT: 360 QTc: 476 Interpretive Statements Pacemaker spikes or artifacts Atrial fibrillation RSR' in V1 or V2, probably normal variant Left ventricular hypertrophy ST elevation, consider anterior injury Borderline prolonged QT interval Electronically Signed On 03-24-2025 8:41:[address] Seda Jeffers Please click the below link to view image of tracing.
[2025-03-24 06:15] LABS: MEAN PLATELET VOLUME 6.7 FL (7.4-10.4); RED CELL DISTRIBUTION WIDTH 18.7 % (11.5-14.5)
[2025-03-24 06:25] VITALS: BP 102/56; PULSE 108; RESP 20; O2SAT 98
[2025-03-24 06:27] LABS: CREATININE 1.19 MG/DL (0.60-1.10); TOTAL CARBON DIOXIDE 25.8 MMOL/L (24-32); eCRCL 92 ML/MIN; eGFR 79 ML/MIN
[2025-03-24 06:44] LABS: PLATELET ESTIMATE NORMAL
--- NOTE | 2025-03-24 06:56 | Physician Documentation ---
History of Present Illness Chief Complaint: Abdominal Pain Stated Complaint: ABDOMINAL PAIN Time Seen by MD: 06:14 Primary Medical Doctor: none Mode of Arrival: EMS, Ambulatory HPI Patient with a history of meth use and last use was a few months ago. He was smoking it. History of CHF on Lasix. History of AFib on Eliquis. In with generalized abdominal pain since the middle of the night and diarrhea. No vomiting. History of appendectomy. States he had swelling in his legs and does not get short of breath. No chest pain. Medication Reconciliation Allergies: Coded Allergies: ibuprofen (Verified Allergy, Unknown, SWELLING, 03/24/25) Scheduled Amiodarone Hcl (Cordarone), 200 MG PO BID Apixaban (Eliquis), 5 MG PO BID Carvedilol (Carvedilol), 3.125 MG PO BID Furosemide (Furosemide), 40 MG PO DAILY Miscellaneous Medications Home Med List (No Home Medications), (Reported) Past Medical History Past Medical History: *CARDIOVASCULAR* Past Surgical History: noncontributory Alcohol Use: None Drug Use: methamphetamine, heroin Lives with: Alone Lives In: Home Review of Systems All Other Systems at this time: Reviewed and Negative Physical Exam Vital Signs: Temperature: 98.2, Source: Oral, Heart Rate: 108, Respiratory Rate: 20, BP: 102/56, Pulse Oximetry: 98, Weight: 85.000 General Appearance: alert, mild distress Neck: normal inspection, full range of motion Respiratory: lungs clear, normal breath sounds, no respiratory distress Chest: no accessory muscle use Cardiovascular: tachycardia, irregularly irregular, other (2+ pitting edema) Gastrointestinal: normal palpation (Moderate tenderness throughout) Neurologic: oriented x4, memory intact Psychiatric: normal mood/affect Skin: normal color, warm/dry Progress Progress Note Patient came in with abdominal pain and diarrhea. History of CHF. History of AFib on Eliquis. Lab work was stable. Gave Tylenol for pain. Ordered CT scan for further evaluation but patient eloped prior to CT. Left his IV on the floor. Results/Orders Results/Orders Orders - SAAD COREA MD Acetaminophen 1,000mg/100ml Iv (Ofirmev (03/24/25 06:35) Ct Abdomen Pelvis (03/24/25 06:32) Vital Signs 03/24/25 03/24/25 03/24/2503/24/25 05:43 05:49 05:49 06:25 Temp 98.2 Pulse 106 102 108 Resp 18 20 16 20 B/P (MAP) 112/63 112/63 (79) 102/56 (71) Pulse Ox 98 97 98 Laboratory Tests Test 03/24/25 05:58 White Blood Count 6.3 Red Blood Count 3.45 L Hemoglobin 9.1 L Hematocrit 28.4 L Mean Corpuscular Volume 82.3 Mean Corpuscular Hemoglobin 26.4 L Mean Corpuscular Hemoglobin Concent 32.1 L Red Cell Distribution Width 18.7 H Platelet Count 229 Mean Platelet Volume 6.7 L Neutrophils (%) (Auto) 73.2 Lymphocytes (%) (Auto) 18.2 L Monocytes (%) (Auto) 7.0 Eosinophils (%) (Auto) 0.6 Basophils (%) (Auto) 1.0 Neutrophils # (Auto) 4.6 Lymphocytes # (Auto) 1.2 Monocytes # (Auto) 0.4 Eosinophils # (Auto) 0.0 Basophils # (Auto) 0.1 CBC Comment Platelet Estimate Normal Red Blood Cell Morphology Perf Polychromasia Few Hypochromasia 1+ Basophilic Stippling Anisocytosis 2+ Sodium Level 129 L Potassium Level 3.6 Chloride Level 96 L Carbon Dioxide Level 25.8 Anion Gap 7 L Blood Urea Nitrogen 33 H Creatinine 1.19 H Estimated GFR/1.73 m2 79 BUN/Creatinine Ratio 27.7 H Glucose Level 102 Calcium Level 8.0 L Total Bilirubin 1.3 H Aspartate Amino Transf (AST/SGOT) 44 H Alanine Aminotransferase (ALT/SGPT) 57 Alkaline Phosphatase 167 H Total Protein 6.5 Albumin 2.4 L Globulin 4.1 Albumin/Globulin Ratio 0.6 L Lipase 30 Chemistry Comments EKG/XRAY/CT/US/VASC/MRI EKG : EKG Rate: 105 EKG: a fib, no ST T wave changes Medical Decision Making Additional Comments Differential includes but is not limited to: colitis, gastroenteritis, pancreatitis, cholecystitis, cholelithiasis, dehydration, electrolyte derangement Departure Impression: Primary Impression: Abdominal pain Qualified Codes: R10.84 - Generalized abdominal pain Additional Impression: Diarrhea Qualified Codes: R19.7 - Diarrhea, unspecified Condition: Stable Referrals: NO PRIMARY CARE PROVIDER (PCP) Signature Scribe Signature: No scribe used Attestation: No scribe used SAAD COREA MD Mar 24, 2025 06:56
[2025-03-24] MEDS: acetaminophen 1,000mg/100ml IV 100 ML IV SCH (06:58)
[2025-03-24] MEDS ORDERED: iohexol 300mg/ml 100ml inj. ONE (07:06)
== END 2025-03-24 07:52 | disposition left against medical advice (07) ==
LOC: ER 05:42
DX: R10.84 Generalized abdominal pain (principal); R19.7 Diarrhea, unspecified; F17.200 Nicotine dependence, unspecified, uncomplicated; F15.90 Other stimulant use, unspecified, uncomplicated; F11.90 Opioid use, unspecified, uncomplicated; I48.91 Unspecified atrial fibrillation; I50.9 Heart failure, unspecified; Z88.6 Allergy status to analgesic agent; Z79.01 Long term (current) use of anticoagulants; Z95.0 Presence of cardiac pacemaker; Z79.899 Other long term (current) drug therapy; Z60.2 Problems related to living alone
CPT/HCPCS: 36415; 80053; 83690; 85008; 85025; 93005; 96374; 99284; J0131; Q9967